=== PATIENT | male | born 1945 | race Caucasian/White ===

== ENCOUNTER 2019-01-21 20:03 | Inpatient (IN) ==
[~2019-01-21 20:03] MED LIST: HEPARIN (PORCINE) 1000 UNIT/ML 10 ML (CATH LAB USE ONLY) ONE; LIDOCAINE HCL 1% 20 ML VIAL ONE; MIDAZOLAM HCL 1 MG/ML 2ML VIAL ONE; NITROGLYCERIN/D5W 100MCG/ML 20ML SYR ONE; NiCARDipine HCL INJ 2.5 MG/ML 10 ML AMP ONE; fentaNYL citrate 100 MCG/2 ML VIAL ONE
[2019-01-21] MEDS ORDERED: HEPARIN SOD (PORCINE) 1000 UNIT/ML 10 ML VIAL ONE (20:18)
[2019-01-21] MEDS ORDERED: TICAGRELOR 90 MG TAB PO ONE (20:18)
--- NOTE | 2019-01-21 20:25 | XRay Report ---
XR chest 1V portable HISTORY: 73 years-old Male Chest Pain acute atypical chest pain COMPARISON: Chest radiographs 10/19/2012 TECHNIQUE: Semiupright AP view of the chest FINDINGS: A catheter or nonspecific with a overlies the right upper chest and left mid chest. The cardiac silho uette is enlarged. Lungs are hypoinflated without pneumothorax, pleural effusion, focal airspace cons olidation or overt pulmonary edema. Degenerative changes of the shoulders and spine. IMPRESSION: 1. Cardiomegaly without overt pulmonary edema. 2. Hypoinflation. The above report was generated using voice recognition software. It may contain grammatical, syntax o r spelling errors. Electronically signed by: Elías Whaley M.D. 01/21/2019 8:24 PM
[2019-01-21 20:33] LABS: Basophils # (auto) 0.05 K/uL (0-0.2); Basophils % (auto) 0.5 %; Eosinophils # (auto) 0.11 K/uL (0-0.5); Eosinophils % (auto) 1.2 %; Hematocrit (blood only) 40.8 % (42-52); Hemoglobin 13.9 g/dL (14.0-18.0); Immature Granulocytes # (auto) 0.05 K/uL (0.00-0.02); Immature Granulocytes % (auto) 0.5 %; Lymphocytes % (auto) 13.1 %; Mean Corpuscular Hgb Conc 34.1 g/dL (32-36); Mean Corpuscular Volume 87.6 fL (80-100); Mean Platelet Volume 9.1 fL (7.4-10.4); Monocytes # (auto) 0.49 K/uL (0.11-0.59); Monocytes % (auto) 5.4 %; Neutrophils # (auto) 7.23 K/uL (1.4-6.5); Neutrophils % (auto) 79.3 %; Platelet Count 186 K/uL (130-400); RDW Coefficient of Variation 13.9 % (11.5-14.5); RDW Standard Deviation 44.4 fL (36.4-46.3); Red Blood Count 4.66 M/uL (4.7-6.1); White Blood Count 9.13 K/uL (4.8-10.8)
[2019-01-21 20:44] LABS: Partial Thromboplastin Ratio 0.8; Partial Thromboplastin Time 21.5 Seconds (21.0-31.0); Prothrombin Time 10.6 Seconds (9.0-12.0)
[2019-01-21 20:51] LABS: Albumin Level 3.9 gm/dl (3.4-5.0); BUN Creatinine Ratio 18.1 (10-20); Calcium 8.3 mg/dl (8.5-10.1); Creatinine Clr Calc Pharmacy 65.4 ml/min; Est GFR (Non-African American) 54.4; Potassium 4.2 mmol/L (3.5-5.1)
--- NOTE | 2019-01-21 20:51 | Emergency Department Note ---
Entered by Kacy Sauceda acting as a scribe for Miguel A Soto DO History of Present Illness General Chief complaint: Heart Alert Source: patient and EMS Mode of arrival: EMS Limitations: no limitations History of Present Illness Provider complaint: chest pain Onset (ago): hour(s) 1 Location: chest Radiation: extremity (both arms) Pain Consistency: + other (episode) Maximum Pain Intensity: 10 Current Pain Intensity: 5 Quality: + other (pressure) Associated symptoms: + nausea/vomiting and + other (neck pain); no shortness of breath Treatments prior to arrival: aspirin (4) and other (3 NTG) The patient is a 73 year old male who presents to the Emergency Room via EMS following an episode of chest pain that began an hour ago. Per EMS, the patient' s pain radiates to both arms. The patient denies the pain radiating to his back. He describes the pain as a pressure and rates it a 5/10. The patient states that he has some neck pain and had an episode of emesis but denies any shortness of breath. The patient notes that he had just eaten a hoagie when the symptoms onset. The family reports that the patient was shoveling snow earlier today. Per EMS, the patient was given 4 aspirin and 3 nitroglycerins en route. Home Medications Home Medications Medication Instructions Recorded Confirmed Type LISINOPRIL (PRINIVIL) 10 mg PO QAM #0 tab 10/19/12 History SIMVASTATIN (ZOCOR) 40 mg PO QAM #0 tab 10/19/12 History OXYCODONE HCL (OXYCODONE HCL ER) 10 mg PO Q12 #20 12/05/12 Rx XRL10 10 mg PO QAM 14 Days #0 12/05/12 Rx Allergies Allergy/AdvReac Type Severity Reaction Status Date / Time No Known Allergies Allergy Unverified 10/19/12 09:07 Past Med/Surg History Medical History Obesity Hyperlipidemia Hypertension (Chronic) No significant past surgical history Family History Other Family history non-contributory Social History Current Living Situation: Spouse Other Information That Helps Us Care for You: No Feels Safe at Home: Yes Safety Concerns: Feels Safe At This Time Smoking Status: Current every day smoker Tobacco Type: smokeless tobacco Hx Substance Use: No Beliefs That Will Affect Care: None Communication Ability: Effective Review of Systems See HPI for pertinent positives & negatives. and A total of 10 systems reviewed and were otherwise negative Physical Exam Vital Signs Vital Signs - 24 hr 01/21/19 20:02 01/21/19 20:06 01/21/19 20:11 Temperature 36.8 C Temperature Source Oral Sepsis Recent Fever Within 48 Hours No Sepsis Action Taken by Nursing No Action Required Pulse Rate 89 89 Pulse Rate [Apical] Pulse Rate from SpO2 Sensor 90 Pulse Rhythm [Apical] Pulse Strength [Apical] Respiratory Rate 12 Respiratory Effort / Characteristics Non-Labored Spontaneous Respiratory Depth Normal Respiratory Pattern Regular Blood Pressure 189/102 H 196/107 H Blood Pressure [Left Arm] Blood Pressure Mean 131 136 Blood Pressure Mean [Left Arm] Blood Pressure Position Lying Blood Pressure Position [Left Arm] Pulse Oximetry 97 97 98 Oxygen Delivery Method Room Air Room Air Room Air 01/21/19 20:16 01/21/19 22:36 01/21/19 22:37 Temperature 36.9 C Temperature Source Oral Sepsis Recent Fever Within 48 Hours Sepsis Action Taken by Nursing Pulse Rate 96 H Pulse Rate [Apical] 87 83 Pulse Rate from SpO2 Sensor 97 H Pulse Rhythm [Apical] Regular Pulse Strength [Apical] Normal Respiratory Rate 18 18 Respiratory Effort / Characteristics Non-Labored Spontaneous Respiratory Depth Normal Respiratory Pattern Regular Blood Pressure Blood Pressure [Left Arm] 136/63 137/79 Blood Pressure Mean Blood Pressure Mean [Left Arm] 87 98 Blood Pressure Position Blood Pressure Position [Left Arm] Lying Pulse Oximetry 94 98 99 Oxygen Delivery Method Room Air Room Air 01/21/19 22:52 01/21/19 23:07 01/21/19 23:37 Temperature Temperature Source Sepsis Recent Fever Within 48 Hours Sepsis Action Taken by Nursing Pulse Rate Pulse Rate [Apical] 76 77 61 Pulse Rate from SpO2 Sensor Pulse Rhythm [Apical] Regular Regular Regular Pulse Strength [Apical] Normal Normal Respiratory Rate 16 20 20 Respiratory Effort / Characteristics Non-Labored Spontaneous Non-Labored Spontaneous Non-Labored Spontaneous Respiratory Depth Normal Normal Normal Respiratory Pattern Regular Regular Regular Blood Pressure Blood Pressure [Left Arm] 139/66 145/79 H 134/76 Blood Pressure Mean Blood Pressure Mean [Left Arm] 90 101 95 Blood Pressure Position Blood Pressure Position [Left Arm] Lying Lying Lying Pulse Oximetry 99 98 99 Oxygen Delivery Method Room Air Room Air Room Air 01/22/19 00:07 01/22/19 01:07 01/22/19 02:07 Temperature 36.6 C Temperature Source Oral Sepsis Recent Fever Within 48 Hours Sepsis Action Taken by Nursing Pulse Rate Pulse Rate [Apical] 61 67 60 Pulse Rate from SpO2 Sensor Pulse Rhythm [Apical] Regular Regular Regular Pulse Strength [Apical] Normal Normal Normal Respiratory Rate 20 20 20 Respiratory Effort / Characteristics Non-Labored Spontaneous Non-Labored Spontaneous Non-Labored Spontaneous Respiratory Depth Normal Normal Normal Respiratory Pattern Regular Regular Regular Blood Pressure Blood Pressure [Left Arm] 123/74 118/50 L 141/90 H Blood Pressure Mean Blood Pressure Mean [Left Arm] 90 72 107 Blood Pressure Position Blood Pressure Position [Left Arm] Lying Lying Lying Pulse Oximetry 95 93 98 Oxygen Delivery Method Room Air Room Air Room Air 01/22/19 03:07 01/22/19 04:07 01/22/19 06:04 Temperature 36.8 C Temperature Source Oral Sepsis Recent Fever Within 48 Hours Sepsis Action Taken by Nursing Pulse Rate Pulse Rate [Apical] 63 61 60 Pulse Rate from SpO2 Sensor Pulse Rhythm [Apical] Regular Regular Regular Pulse Strength [Apical] Normal Normal Respiratory Rate 14 20 20 Respiratory Effort / Characteristics Non-Labored Spontaneous Non-Labored Spontaneous Non-Labored Spontaneous Respiratory Depth Normal Normal Normal Respiratory Pattern Regular Regular Regular Blood Pressure Blood Pressure [Left Arm] 151/81 H 142/78 H 135/62 Blood Pressure Mean Blood Pressure Mean [Left Arm] 104 99 86 Blood Pressure Position Blood Pressure Position [Left Arm] Lying Lying Lying Pulse Oximetry 95 96 97 Oxygen Delivery Method Room Air Room Air Room Air 01/22/19 07:00 01/22/19 08:00 01/22/19 08:01 Temperature Temperature Source Sepsis Recent Fever Within 48 Hours Sepsis Action Taken by Nursing Pulse Rate 56 L 65 Pulse Rate [Apical] Pulse Rate from SpO2 Sensor 56 L 63 Pulse Rhythm [Apical] Pulse Strength [Apical] Respiratory Rate 18 15 Respiratory Effort / Characteristics Respiratory Depth Respiratory Pattern Blood Pressure 158/76 H 175/93 H Blood Pressure [Left Arm] Blood Pressure Mean 103 120 Blood Pressure Mean [Left Arm] Blood Pressure Position Blood Pressure Position [Left Arm] Pulse Oximetry 98 99 Oxygen Delivery Method Room Air Room Air 01/22/19 09:00 01/22/19 09:05 01/22/19 09:58 Temperature Temperature Source Sepsis Recent Fever Within 48 Hours Sepsis Action Taken by Nursing Pulse Rate 60 57 L 77 Pulse Rate [Apical] Pulse Rate from SpO2 Sensor 60 Pulse Rhythm [Apical] Pulse Strength [Apical] Respiratory Rate 18 17 Respiratory Effort / Characteristics Respiratory Depth Respiratory Pattern Blood Pressure 158/81 H 146/84 H Blood Pressure [Left Arm] Blood Pressure Mean 106 104 Blood Pressure Mean [Left Arm] Blood Pressure Position Blood Pressure Position [Left Arm] Pulse Oximetry 97 96 Oxygen Delivery Method Room Air 01/22/19 12:01 01/22/19 12:02 01/22/19 13:00 Temperature 37.2 C Temperature Source Sepsis Recent Fever Within 48 Hours Sepsis Action Taken by Nursing Pulse Rate 63 61 55 L Pulse Rate [Apical] Pulse Rate from SpO2 Sensor 62 60 55 L Pulse Rhythm [Apical] Pulse Strength [Apical] Respiratory Rate 20 19 20 Respiratory Effort / Characteristics Respiratory Depth Respiratory Pattern Blood Pressure 107/68 101/58 L Blood Pressure [Left Arm] Blood Pressure Mean 81 72 Blood Pressure Mean [Left Arm] Blood Pressure Position Blood Pressure Position [Left Arm] Pulse Oximetry 97 96 95 Oxygen Delivery Method Room Air 01/22/19 14:00 01/22/19 15:00 Temperature Temperature Source Sepsis Recent Fever Within 48 Hours Sepsis Action Taken by Nursing Pulse Rate 57 L 48 L Pulse Rate [Apical] Pulse Rate from SpO2 Sensor 56 L 49 L Pulse Rhythm [Apical] Pulse Strength [Apical] Respiratory Rate 17 14 Respiratory Effort / Characteristics Respiratory Depth Respiratory Pattern Blood Pressure 115/65 112/60 Blood Pressure [Left Arm] Blood Pressure Mean 81 77 Blood Pressure Mean [Left Arm] Blood Pressure Position Blood Pressure Position [Left Arm] Pulse Oximetry 98 95 Oxygen Delivery Method Room Air GENERAL: Patient is awake and alert. He is somewhat anxious appearing and appears to be uncomfortable. EYES: The conjunctivae are clear. The pupils are round and reactive. EARS, NOSE, MOUTH AND THROAT: The nose is without any evidence of any deformity. Mucous membranes are moist tongue is midline NECK: The neck is nontender and supple. RESPIRATORY: Normal respiratory effort is noted there is no evidence of wheezing rhonchi or rales CARDIOVASCULAR: Regular rate and rhythm noted there no murmurs rubs or gallops normal S1 normal S2 GASTROINTESTINAL: The abdomen is soft. Bowel sounds are present in all quadrants. Abdomen is nontender MUSCULOSKELETAL/EXTREMITIES: There is no evidence of gross deformity full range of motion is noted in the hips and shoulders SKIN: There is no obvious evidence of any rash. No significant pedal edema was noted. Pulses were symmetric in both wrists. NEUROLOGIC: Patient is awake alert and oriented x3 strength is symmetric patellar reflexes are 2+ bilaterally Course 2003: Past medical records reviewed. The patient was evaluated in room B1, and a complete history and physical examination were performed. 2049: The patient was taken to the cleaner laboratory equipment. Administered Medications Aspirin (Ecotrin Ectab) 81 mg PO QAM [facility] Stop: 02/21/19 08:59 Last Admin: 01/22/19 08:20 Dose: 81 mg Atorvastatin Calcium (Lipitor) 80 mg PO QAM [facility] Stop: 02/21/19 08:59 Last Admin: 01/22/19 08:19 Dose: 80 mg Lisinopril (Zestril) 10 mg PO QAM [facility] Stop: 02/21/19 08:59 Last Admin: 01/22/19 08:19 Dose: 10 mg Metoprolol Tartrate (Lopressor) 25 mg PO BID [facility] Stop: 02/21/19 08:59 Last Admin: 01/22/19 09:50 Dose: 25 mg Ticagrelor (Brilinta) 90 mg PO BID [facility] Stop: 02/21/19 08:59 Last Admin: 01/22/19 08:19 Dose: 90 mg Discontinued Medications Atropine Sulfate (Atropine Sulfate) Confirm Administered Dose 1 mg IV .STK-MED ONE Stop: 01/21/19 22:04 Last Admin: 01/21/19 23:10 Dose: Not Given Fentanyl Citrate (Fentanyl Citrate) Confirm Administered Dose 100 mcg .ROUTE .STK-MED ONE Stop: 01/21/19 19:57 Last Admin: 01/21/19 23:06 Dose: Not Given Heparin Sodium (Porcine) (Heparin Iv Bolus ([facility] Use Only)) Confirm Administered Dose 10,000 units .ROUTE .STK-MED ONE Stop: 01/21/19 19:56 Last Admin: 01/21/19 23:05 Dose: Not Given Heparin Sodium (Porcine) (Heparin Iv Bolus) Confirm Administered Dose 10,000 units .ROUTE .STK-MED ONE Stop: 01/21/19 20:19 Last Admin: 01/21/19 20:21 Dose: 5,000 units Heparin Sodium/Sodium Chloride (Heparin Sod/Nss 2 Units/Ml) Confirm Administered Dose 3,000 units IV .STK-MED ONE Stop: 01/21/19 19:56 Last Admin: 01/21/19 23:05 Dose: Not Given Sodium Chloride (Nss 1000ml) 1,000 mls @ 100 mls/hr IV .Q10H TRI Stop: 01/22/19 05:59 Last Infusion: 01/22/19 06:05 Dose: 0 mls/hr Admin: 01/21/19 22:30 Dose: 100 mls/hr Lidocaine HCl (Xylocaine 1% (Local)) Confirm Administered Dose 20 ml .ROUTE .STK -MED ONE Stop: 01/21/19 20:04 Last Admin: 01/21/19 23:09 Dose: Not Given Midazolam HCl (Versed) Confirm Administered Dose 2 mg .ROUTE .STK-MED ONE Stop: 01/21/19 19:57 Last Admin: 01/21/19 23:06 Dose: Not Given Nicardipine HCl (Cardene) Confirm Administered Dose 25 mg .ROUTE .STK-MED ONE Stop: 01/21/19 19:56 Last Admin: 01/21/19 23:04 Dose: Not Given Nitroglycerin/Dextrose (Nitroglycerin/D5w 100 Mcg/Ml 20ml Syringe) Confirm Administered Dose 2,000 mcg .ROUTE .STK-MED ONE Stop: 01/21/19 19:57 Last Admin: 01/21/19 23:06 Dose: Not Given Ticagrelor (Brilinta) Confirm Administered Dose 180 mg PO .STK-MED ONE Stop: 01/21/19 20:19 Last Admin: 01/21/19 20:21 Dose: 180 mg Medical Decision Making Differential Diagnosis Differential diagnoses includes but is not limited to: GERD, esophageal spasm, cholecystitis, acute coronary syndrome, myocardial infarction, pericarditis, pulmonary embolus, aortic dissection, pneumonia, pneumothorax, and musculoskeletal, shingles. Medical Records Attestation: I reviewed the patient's medical records. Home Medications Current Medication List: was personally reviewed by me Laboratory Data Attestation: I reviewed the patient's lab results. Result diagrams: 01/22/19 04:03 01/22/19 10:25 Lab Results 01/21/19 01/21/19 01/21/19 Range/Units 20:14 20:14 20:14 WBC 9.13 (4.8-10.8) K/uL RBC 4.66 L (4.7-6.1) M/uL Hgb 13.9 L (14.0-18.0) g/dL Hct 40.8 L (42-52) % MCV 87.6 (80-100) fL MCH 29.8 (25-34) pg MCHC 34.1 (32-36) g/dL RDW Std Deviation 44.4 (36.4-46.3) fL RDW Coeff of Shine 13.9 (11.5-14.5) % Plt Count 186 (130-400) K/uL MPV 9.1 (7.4-10.4) fL Immature Gran % (Auto) 0.5 % Neut % (Auto) 79.3 % Lymph % (Auto) 13.1 % [place] % (Auto) 5.4 % Eos % (Auto) 1.2 % Baso % (Auto) 0.5 % Immature Gran # (Auto) 0.05 H (0.00-0.02) K/uL Neut # (Auto) 7.23 H (1.4-6.5) K/uL Lymph # (Auto) 1.20 (1.2-3.4) K/uL [place] # (Auto) 0.49 (0.11-0.59) K/uL Eos # (Auto) 0.11 (0-0.5) K/uL Baso # (Auto) 0.05 (0-0.2) K/uL PT 10.6 (9.0-12.0) Seconds INR 1.0 (0.9-1.1) APTT 21.5 (21.0-31.0) Seconds PTT Ratio 0.8 Activ Coag Time Kaolin (94-140) SECONDS Sodium 138 (136-145) mmol/L Potassium 4.2 (3.5-5.1) mmol/L Chloride 106 (98-107) mmol/L Carbon Dioxide 27 (21-32) mmol/L Anion Gap 6.0 (3-11) BUN 24 H (7-18) mg/dl Creatinine 1.31 (0.6-1.4) mg/dl Est Cr Clr Drug Dosing 65.4 ml/min Est GFR ( Amer) 63.0 Est GFR (Non-Af Amer) 54.4 BUN/Creatinine Ratio 18.1 (10-20) Glucose 167 H (70-99) mg/dl Estimat Average Glucose mg/dl Hemoglobin A1c (4.5-5.6) % Calcium 8.3 L (8.5-10.1) mg/dl Phosphorus (2.5-4.9) mg/dl Magnesium (1.8-2.4) mg/dl Total Bilirubin 0.3 (0.2-1) mg/dl AST 27 (15-37) U/L ALT 35 (12-78) U/L Alkaline Phosphatase 55 (45-117) U/L POC Troponin I (0-0.045) ng/ml Troponin I 0.030 (0-0.045) ng/ml Total Protein 7.3 (6.4-8.2) gm/dl Albumin 3.9 (3.4-5.0) gm/dl Globulin 3.4 (2.5-4.0) gm/dl Albumin/Globulin Ratio 1.1 (0.9-2) Triglycerides (0-150) mg/dl Cholesterol (0-200) mg/dl LDL Cholesterol, Calc mg/dl VLDL Cholesterol, Calc mg/dl HDL Cholesterol mg/dl Cholesterol/HDL Ratio Lipase 134 (73-393) U/L Nasal Screen MRSA (PCR) (Negative) Hepatitis C Ab Screen (Neg) 01/21/19 01/21/19 01/22/19 Range/Units 20:14 21:17 04:03 WBC (4.8-10.8) K/uL RBC (4.7-6.1) M/uL Hgb (14.0-18.0) g/dL Hct (42-52) % MCV (80-100) fL MCH (25-34) pg MCHC (32-36) g/dL RDW Std Deviation (36.4-46.3) fL RDW Coeff of Shine (11.5-14.5) % Plt Count (130-400) K/uL MPV (7.4-10.4) fL Immature Gran % (Auto) % Neut % (Auto) % Lymph % (Auto) % [place] % (Auto) % Eos % (Auto) % Baso % (Auto) % Immature Gran # (Auto) (0.00-0.02) K/uL Neut # (Auto) (1.4-6.5) K/uL Lymph # (Auto) (1.2-3.4) K/uL [place] # (Auto) (0.11-0.59) K/uL Eos # (Auto) (0-0.5) K/uL Baso # (Auto) (0-0.2) K/uL PT (9.0-12.0) Seconds INR (0.9-1.1) APTT (21.0-31.0) Seconds PTT Ratio Activ Coag Time Kaolin 175 H (94-140) SECONDS Sodium (136-145) mmol/L Potassium (3.5-5.1) mmol/L Chloride (98-107) mmol/L Carbon Dioxide (21-32) mmol/L Anion Gap (3-11) BUN (7-18) mg/dl Creatinine (0.6-1.4) mg/dl Est Cr Clr Drug Dosing ml/min Est GFR ( Amer) Est GFR (Non-Af Amer) BUN/Creatinine Ratio (10-20) Glucose (70-99) mg/dl Estimat Average Glucose mg/dl Hemoglobin A1c (4.5-5.6) % Calcium (8.5-10.1) mg/dl Phosphorus (2.5-4.9) mg/dl Magnesium (1.8-2.4) mg/dl Total Bilirubin (0.2-1) mg/dl AST (15-37) U/L ALT (12-78) U/L Alkaline Phosphatase (45-117) U/L POC Troponin I < 0.03 (0-0.045) ng/ml Troponin I (0-0.045) ng/ml Total Protein (6.4-8.2) gm/dl Albumin (3.4-5.0) gm/dl Globulin (2.5-4.0) gm/dl Albumin/Globulin Ratio (0.9-2) Triglycerides (0-150) mg/dl Cholesterol (0-200) mg/dl LDL Cholesterol, Calc mg/dl VLDL Cholesterol, Calc mg/dl HDL Cholesterol mg/dl Cholesterol/HDL Ratio Lipase (73-393) U/L Nasal Screen MRSA (PCR) (Negative) Hepatitis C Ab Screen Neg (Neg) 01/22/19 01/22/19 01/22/19 Range/Units 04:03 04:03 04:03 WBC 8.58 (4.8-10.8) K/uL RBC 4.38 L (4.7-6.1) M/uL Hgb 12.9 L (14.0-18.0) g/dL Hct 38.2 L (42-52) % MCV 87.2 (80-100) fL MCH 29.5 (25-34) pg MCHC 33.8 (32-36) g/dL RDW Std Deviation 44.3 (36.4-46.3) fL RDW Coeff of Shine 13.8 (11.5-14.5) % Plt Count 197 (130-400) K/uL MPV 9.0 (7.4-10.4) fL Immature Gran % (Auto) 0.6 % Neut % (Auto) 69.6 % Lymph % (Auto) 17.9 % [place] % (Auto) 10.0 % Eos % (Auto) 1.3 % Baso % (Auto) 0.6 % Immature Gran # (Auto) 0.05 H (0.00-0.02) K/uL Neut # (Auto) 5.97 (1.4-6.5) K/uL Lymph # (Auto) 1.54 (1.2-3.4) K/uL [place] # (Auto) 0.86 H (0.11-0.59) K/uL Eos # (Auto) 0.11 (0-0.5) K/uL Baso # (Auto) 0.05 (0-0.2) K/uL PT (9.0-12.0) Seconds INR (0.9-1.1) APTT (21.0-31.0) Seconds PTT Ratio Activ Coag Time Kaolin (94-140) SECONDS Sodium (136-145) mmol/L Potassium (3.5-5.1) mmol/L Chloride (98-107) mmol/L Carbon Dioxide (21-32) mmol/L Anion Gap (3-11) BUN (7-18) mg/dl Creatinine (0.6-1.4) mg/dl Est Cr Clr Drug Dosing ml/min Est GFR ( Amer) Est GFR (Non-Af Amer) BUN/Creatinine Ratio (10-20) Glucose (70-99) mg/dl Estimat Average Glucose 120 mg/dl Hemoglobin A1c 5.8 H (4.5-5.6) % Calcium (8.5-10.1) mg/dl Phosphorus (2.5-4.9) mg/dl Magnesium (1.8-2.4) mg/dl Total Bilirubin (0.2-1) mg/dl AST (15-37) U/L ALT (12-78) U/L Alkaline Phosphatase (45-117) U/L POC Troponin I (0-0.045) ng/ml Troponin I 29.900 H* (0-0.045) ng/ml Total Protein (6.4-8.2) gm/dl Albumin (3.4-5.0) gm/dl Globulin (2.5-4.0) gm/dl Albumin/Globulin Ratio (0.9-2) Triglycerides 218 H (0-150) mg/dl Cholesterol 228 H (0-200) mg/dl LDL Cholesterol, Calc 146 mg/dl VLDL Cholesterol, Calc 44 mg/dl HDL Cholesterol 38 mg/dl Cholesterol/HDL Ratio 6 Lipase (73-393) U/L Nasal Screen MRSA (PCR) (Negative) Hepatitis C Ab Screen (Neg) 01/22/19 01/22/19 Range/Units 10:25 Unknown WBC (4.8-10.8) K/uL RBC (4.7-6.1) M/uL Hgb (14.0-18.0) g/dL Hct (42-52) % MCV (80-100) fL MCH (25-34) pg MCHC (32-36) g/dL RDW Std Deviation (36.4-46.3) fL RDW Coeff of Shine (11.5-14.5) % Plt Count (130-400) K/uL MPV (7.4-10.4) fL Immature Gran % (Auto) % Neut % (Auto) % Lymph % (Auto) % [place] % (Auto) % Eos % (Auto) % Baso % (Auto) % Immature Gran # (Auto) (0.00-0.02) K/uL Neut # (Auto) (1.4-6.5) K/uL Lymph # (Auto) (1.2-3.4) K/uL [place] # (Auto) (0.11-0.59) K/uL Eos # (Auto) (0-0.5) K/uL Baso # (Auto) (0-0.2) K/uL PT (9.0-12.0) Seconds INR (0.9-1.1) APTT (21.0-31.0) Seconds PTT Ratio Activ Coag Time Kaolin (94-140) SECONDS Sodium 139 (136-145) mmol/L Potassium 3.9 (3.5-5.1) mmol/L Chloride 108 H (98-107) mmol/L Carbon Dioxide 27 (21-32) mmol/L Anion Gap 4.0 (3-11) BUN 17 (7-18) mg/dl Creatinine 1.07 (0.6-1.4) mg/dl Est Cr Clr Drug Dosing 79.1 ml/min Est GFR ( Amer) 80.5 Est GFR (Non-Af Amer) 69.5 BUN/Creatinine Ratio 16.0 (10-20) Glucose 89 (70-99) mg/dl Estimat Average Glucose mg/dl Hemoglobin A1c (4.5-5.6) % Calcium 8.6 (8.5-10.1) mg/dl Phosphorus 3.0 (2.5-4.9) mg/dl Magnesium 2.2 (1.8-2.4) mg/dl Total Bilirubin (0.2-1) mg/dl AST (15-37) U/L ALT (12-78) U/L Alkaline Phosphatase (45-117) U/L POC Troponin I (0-0.045) ng/ml Troponin I 30.900 H* (0-0.045) ng/ml Total Protein (6.4-8.2) gm/dl Albumin (3.4-5.0) gm/dl Globulin (2.5-4.0) gm/dl Albumin/Globulin Ratio (0.9-2) Triglycerides (0-150) mg/dl Cholesterol (0-200) mg/dl LDL Cholesterol, Calc mg/dl VLDL Cholesterol, Calc mg/dl HDL Cholesterol mg/dl Cholesterol/HDL Ratio Lipase (73-393) U/L Nasal Screen MRSA (PCR) Negative (Negative) Hepatitis C Ab Screen (Neg) Imaging Data Radiologist's Impression: Radiology results as stated below per my review and the radiologist's interpretation: XR chest 1V portable HISTORY: 73 years-old Male Chest Pain acute atypical chest pain COMPARISON: Chest radiographs 10/19/2012 TECHNIQUE: Semiupright AP view of the chest FINDINGS: A catheter or nonspecific with a overlies the right upper chest and left mid chest. The cardiac silhouette is enlarged. Lungs are hypoinflated without pneumothorax, pleural effusion, focal airspace consolidation or overt pulmonary edema. Degenerative changes of the shoulders and spine. IMPRESSION: 1. Cardiomegaly without overt pulmonary edema. 2. Hypoinflation. The above report was generated using voice recognition software. It may contain grammatical, syntax or spelling errors. Electronically signed by: Elías Whaley M.D. 01/21/2019 8:24 PM ECG Data Attestation: I personally reviewed and interpreted this ECG as follows: Indication: chest pain Rate (beats per minute): 73 Rhythm: normal sinus Findings: + other (reciprocal changes in high lateral consistent inferior posterior wall [place]), + ST depression (anterior) and + ST elevation (inferior); no ectopy Comparison ECG Date: from (19-OCT-2012) Change: the following changes noted (changes new) Additional Comments: REPEAT EKG: normal sinus rhythm, 86 bpm, no ectopy, continued ST abnormalities consistent with inferior posterior [place] Blood Pressure Blood Pressure Findings: Normal blood pressure Blood Pressure Disposition: further management by hospitalist YOLANDA Liu The patient is a 73-year-old male who presented to the emergency department by ambulance as a heart alert. The patient had an EKG done by prehospital personnel that appear to be consistent with an inferior posterior wall [place]. The patient was treated with aspirin and nitroglycerin prior to arrival with some improvement of his symptoms. The patient was made a heart alert with 30 minutes prior to arrival. The patient arrived to the emergency department and he was evaluated by myself. I discussed the patient's condition with the admeasurer who arrived at the bedside. I discussed the patient 's condition with him. He was agreeable to interventional evaluation. He was taken to the [facility]. The patient was given Brilinta as well as IV heparin in the emergency department. Impression & Plan ST elevation myocardial infarction (STEMI) of inferior wall Discharge Plan Visit Data *Final* Discharge Date/Time: 01/21/19 20:21 Chief Complaint: Heart Alert ED Provider: Miguel A Soto Discharge Problem: ST elevation myocardial infarction (STEMI) of inferior wall Patient Disposition: Admitted As Inpatient Discharge Instructions Interventions: ED Discharge Assessment Last Done: 01/21/19 20:21 The scribe's documentation has been prepared under my direction and personally reviewed by me in its entirety. I confirm that the note above accurately reflects all work, treatment, procedures, and medical decision making performed by me.
[2019-01-21 20:56] LABS: Albumin Globulin Ratio 1.1 (0.9-2); Bilirubin,Total 0.3 mg/dl (0.2-1); Globulin 3.4 gm/dl (2.5-4.0); Total Protein 7.3 gm/dl (6.4-8.2); Troponin I 0.03 ng/ml (0-0.045)
[2019-01-21] MEDS ORDERED: ATROPINE SULFATE 0.1 MG/ML 10ML SYR IV ONE (22:03)
--- NOTE | 2019-01-21 22:17 | Pre Anesthesia Assessment ---
Date of Service January 21, 2019 Pre Sedation Assessment Vital Signs Temp Pulse Resp BP Pulse Ox 01/21/19 20:16 96 H 94 01/21/19 20:11 89 196/107 H 98 01/21/19 20:06 97 01/21/19 20:02 36.8 C 89 12 189/102 H 97 Cardiovascular RRR, no murmur, no edema Respiratory normal respiratory effort, lungs clear to auscultation Pre-Sedation Airway Assessment Smoking Status: Never smoker Hx Sleep Apnea: No Hx Difficult Intubation: No Short, Thick Neck: No Thyromental Distance: > or= 3.5 Finger Breadths Oral Cavity: + WNL Mallampati Class: III Procedure Planning Contraindications for Sedation: none Current Medications Reviewed: Yes Notes The planned sedation has been discussed with the patient. Informed Consent was obtained. I have identified the patient, determined the appropriateness of sedation and have assessed the patient immediately prior to the procedure. All medicine(s) and interventions are by my order.
--- NOTE | 2019-01-21 22:17 | Post Anesthesia Assessment ---
Date of Service January 21, 2019 Post Sedation Assessment Vital Signs Temp Pulse Resp BP Pulse Ox 01/21/19 20:16 96 H 94 01/21/19 20:11 89 196/107 H 98 01/21/19 20:06 97 01/21/19 20:02 36.8 C 89 12 189/102 H 97 Recovery Score Activity: Moves 4 extremities Respiration: Deep Breath/Cough Circulation: +/-20% PreAnes Value Consciousness: Fully Awake Oxygen Saturation: O2 needed for >90% Discharge Sedation Level of Care: Fast Track Phase II Post Sedation Plan On clinical assessment, the patient appears to have tolerated the sedation without complications. Patient is recovering as anticipated. Patient will continue to be monitored by nursing and may be discharged when sedation discharge criteria are met per below protocol. Upon Completions of procedure and additional 15 minutes continue every 5 minute vital signs and the P.A.R. score; then discharge to a Phase I or Fast Track to Phase II per the following guidelines: * Discharge Patient to appropriate Phase II area if PAR is 8 or greater or return to pre- procedure baseline. The post - procedure orders will be as directed. * If PAR score is less than 8 or not return to pre-procedure baseline then patient will follow Phase I monitoring till PAR is reached for Phase II. The Phase I may be done in procedure room or may call to secure a Phase I area. * If naloxone or flumazenil are used for reversal, hold in Phase I for continued monitoring from when last reversal dose was given for a minimum of 60 minutes or longer pending the nurse and/or physician discretion of patient condition before discharge to Phase II. Please call the Sedation Physician to re-evaluate and complete post-note for discharge to Phase II area. Do NOT discharge from procedure sedation or Phase 1 until post- sedation evaluation note is complete by procedure /sedation MD Sedation Discharge Instructions to be given to the patient at discharge to home.
[2019-01-21] MEDS ORDERED: ONDANSETRON INJ 2 MG/ML 2 ML VIAL IV PRN (22:22)
[2019-01-21] MEDS ORDERED: ACETAMINOPHEN 325 MG TAB PO PRN (22:22)
[2019-01-21] MEDS ORDERED: SODIUM CHLORIDE 0.9% 1000ML 1,000 ML IV SCH (22:30)
--- NOTE | 2019-01-21 22:46 | Cardiac Catheterization ---
Cardiac Cath Procedure Full Procedure Date January 21, 2019 Pre-Procedure Diagnosis Pre-Procedure Diagnosis: STEMI AUC Score AUC Score: 9 Post-Procedure Diagnosis Post-Procedure Diagnosis: Severe CAD, Successful PCI and Normal Intracardiac Pressures Procedure(s) Performed Procedure(s) Performed: Coronary Angiography, Left Heart Cath and Drug Eluting Stent Insurance Examiner Rodrigo Reid MD Tsa Screener(s) William Estimated Blood Loss Estimated Blood Loss: 15 Medication(s) Medication(s): Fentanyl, Heparin, Lidocaine 1%, Nicardipine, Nitroglycerin and Versed Medication(s): ticagrelor Summary of Findings Indication: STEMI/Heart Alert Access: 6 Marshallese right radial artery Catheters: Ikari 3.5 guide, JR4 guide; Rufus, JL 3.5 Findings: LM -large caliber vessel, luminal irregularities LAD -moderate caliber, 20% ostial, mildly calcified 20-30% proximal at takeoff of bifurcating first diagonal, diffuse 60% mid segment disease, diffuse distal disease, small caliber vessel as wraps around the apex with up to 70% stenosis. 60% proximal stenosis and an inferior branch of bifurcating first diagonal Circumflex -moderate caliber vessel, 30% proximal disease, distal luminal irregularities into left PLB. 40% ostial, 70% mid disease in small-moderate caliber OM 2, RCA -dominant, 80-90% proximal, acute 100% mid segment occlusion, diffuse mid to distal calcified 50-60% disease after flow reestablished, mild diffuse disease in right PDA, PLB's LVEDP -17 -- PCI -- Antithrombotic therapy: Heparin, ticagrelor Procedure: RCA cannulated with Ikari 3.5 guide Dude Ranch Manager 50 wire passed across lesion into distal vessel Mid, distal lesions predilated with 2.0 and 2.5 compliant balloon Stents delivered with the aid of a guide liner. Dilated distal lesion stented with 3.0 x 34 extending back in the mid segment Second RUPERT 3.0 x 38 overlapped with initial stent in mid segment extending back to proximal segment Some difficulty delivering third stent into second ostium and had to change guides/wires (JR4, BMW) Third RUPERT 3.0 x 12 mm Suraj overlapped with a second stent extending into proximal segment Stents post-dilated with 3.5 noncompliant balloon Post procedure JENIFER 3 flow, stent well expanded with minimal residual stenosis and no apparent cardiac complications. Arterial Closure: TR band Summary: 1. Inferior STEMI/Occluded mid RCA, 80-90% proximal RCA, diffuse mid to distal 60% RCA disease 2. Moderate to severe multi--vessel non-culprit coronary artery disease -Diffuse 60% disease and small mid LAD, diffuse apical LAD disease 70% disease in small OM 2 3. Borderline intracardiac filling pressure 4. Successful PCI of RCA occlusion and diffuse disease with 3 overlapping drug- eluting stents (3.0 x 12, 3.0 x 38, 3.0 x 34 Suraj; postdilated with 3.5 NC) Recommendations: Admit to ICU for continued monitoring Loaded with ticagrelor 180 mg in collaborative teacher Continue dual-antiplatelet therapy for at least 1 year. Trend troponins until peak, Check Echo Uptitrate beta-edgar/KRISTAN as BP allows High-dose statin Consult cardiac Rehab Hemodynamics Rest Ao:: 168/79/121 Final Ao: 142/73/104 LV: 166/17 Recommendations Recommendations: PCI without planned CABG Specimens Specimens: None Radiation Exposure (mGy) 7596 Contrast (mls) 180 Fluids (cc crystalloids) Fluids (cc crystalloids): 400 Drains Drains: None Anesthesia Moderate Procedural Complication(s) None Disposition ICU ACC Data: Flight Engineer Performance Qualified Cardiac Status Clinical evaluation leading to the procedure CAD Presenation: STEMI Anginal Classification: CCS IV Heart Failure: No Cardiogenic Shock within 24 Hours: No Cardiac Arrest within 24 Hours: No Imaging Studies Past 6 Months: No Stress Studies Past 6 Months: No Diagnostic Physicians Name: Rodrigo Reid MD Status: Emergency Closure Device Percutaneous Entry Location: Radial Closure Device: Radial Band Recommendations: PCI without planned CABG PCI Indication: Immediate PCI for STEMI First Noted: First EKG Lesion Segment Name: Mid RCA Culprit Artery: Yes Stenosis Prior to Rx (%): 100 Chronic Total Occlusion: No IVUS: No FFR: No Pre-Procedure JENIFER Flow: 0 Previously Treated Lesion: No Lesion Complexity: High/C Lesion Length (mm): 50+ Thrombus Present: Yes Bifurcation Lesion: No Guidewire Across Lesion: Stenosis Post-Procedure (%): 0 Post-Procedure JENIFER Flow : 3 Devices(s) Deployed: Yes Yes Intraprocedure Events Significant Disection: No Perforation: No
--- NOTE | 2019-01-21 22:51 | Cardiology Consultation ---
Date of Consultation January 21, 2019 Assessment & Plan (1) ST elevation myocardial infarction (STEMI) of inferior wall: 2. Hypertension 3. Dyslipidemia Patient here with 2+ hours of persistent substernal chest pain and inferior ST elevations on presenting EKG consistent with acute TN. Plan to proceed with emergent cardiac catheterization. Discussed risks, benefits, alternatives of procedure with patient and he is willing to proceed. Plan to perform via right radial artery. Further conditions pending findings of catheterization. Loaded with ticagrelor in the ED. History of Present Illness Reason for Consultation: NSTEMI/heart alert Requesting Physician: Dr. Soto Attending Physician: Rodrigo Reid MD History of Present Illness 73-year-old man with a history of hypertension, dyslipidemia who presented to [facility] ED with acute onset chest pain found to have inferior ST elevations on presenting EKG. Patient endorsed stuttering chest pain beginning this morning while shoveling snow. Was largely chest pain-free throughout the remainder of the day until approximately 5:30 PM tonight when while eating developed substernal persistent chest pain which initially attributed to reflux/gas. EMS was contacted after approximately 2 hours of chest pain. EKG in route showed inferior ST elevations and a heart alert was activated from the field. On arrival patient hypotensive, EKG again with inferior ST elevations having ongoing chest pain. He was loaded with aspirin, ticagrelor, heparin. Past medical history: No prior cardiac history Hypertension, dyslipidemia Osteoporosis post joint surgery Family history: Mother had cardiac issues, question pacemaker Social history: Uses chewing tobacco. Denies smoking. Denies heavy alcohol or illicit drugs. Allergies Allergy/AdvReac Type Severity Reaction Status Date / Time No Known Allergies Allergy Unverified 10/19/12 09:07 Home Medications Home Medications Medication Instructions Recorded Confirmed Type LISINOPRIL (PRINIVIL) 10 mg PO QAM #0 tab 10/19/12 History SIMVASTATIN (ZOCOR) 40 mg PO QAM #0 tab 10/19/12 History OXYCODONE HCL (OXYCODONE HCL ER) 10 mg PO Q12 #20 12/05/12 Rx XRL10 10 mg PO QAM 14 Days #0 12/05/12 Rx Patient History Social History Feels Safe at Home: Yes Smoking Status: Never smoker Review of Systems Not obtained the setting of emergent situation Physical Exam 2 Vital Signs (Past 24 Hours): Last Vital Signs Temp 36.8 C 01/21/19 20:02 Pulse 96 H 01/21/19 20:16 Resp 12 01/21/19 20:02 BP 196/107 H 01/21/19 20:11 Pulse Ox 94 01/21/19 20:16 Physical Exam: General: Uncomfortable Eyes: Sclerae anicteric, extraocular movements intact HENT: Oropharynx clear mucous membranes moist Neck: Normal carotid upstrokes, no bruits. No JVD. Lungs: Clear to auscultation bilaterally, no rhonchi or wheezes Cardiac: Regular rate and rhythm, no murmurs, rubs or gallops. Vascular: 2+ radial, DP and PT pulses. No varicosities. Abdomen: Soft, nontender, nondistended, positive bowel sounds. Extremities: Well perfused, no peripheral edema Skin: No rashes or lesions. Neuro: Nonfocal Psych: Alert orient x3, normal affect and mood
--- NOTE | 2019-01-21 23:46 | History & Physical Report ---
Date of Service January 21, 2019 Assessment & Plan (1) ST elevation myocardial infarction (STEMI) of inferior wall: STEMI: s/p RUPERT x 3 --ICU care, management per cardio note: --Loaded with ticagrelor 180 mg in laborer wharf --Dual anti-platelet therapy --Trend troponins until peak, Check Echo --Uptitrate beta-edgar/KRISTAN as BP allows --High-dose statin --Echo in AM --Check lipid panel and HbA1c Code: Full Dispo: ICU for further monitoring (2) Hypertension: (3) Hyperlipidemia: History of Present Illness Chief Complaint: chest pain, STEMI Primary Care Provider: NO PCP Patient is a pleasant 73yo M who was brought in by EMS for NSTEMI. Patient had been shoveling snow earlier today and noted intermittent CP while doing so. He felt fine afterwards, but notes at about 5:30 pm, he had acute, sudden onset central chest pain. He denies any radiation to his neck/jaw/L arm (however he does note that he has chronic neck/L shoulder pain). 911 was called and he was noted to have STEMI in inferior leads. He denies any significant PMH, however he takes lisinopril and zocor at home, indicating likely HTN and HLD. He is a never smoker, however does chew tobacco. He denies any family history of heart attacks, but notes his mother had some heart issues. Patient was brought in as a heart alert and underwent successful PERSONAL BANKING ASSISTANT with placement of 3x RUPERT in RCA. Allergies Allergy/AdvReac Type Severity Reaction Status Date / Time No Known Allergies Allergy Unverified 10/19/12 09:07 Home Medications Home Medications Medication Instructions Recorded Confirmed Type LISINOPRIL (PRINIVIL) 10 mg PO QAM #0 tab 10/19/12 History SIMVASTATIN (ZOCOR) 40 mg PO QAM #0 tab 10/19/12 History OXYCODONE HCL (OXYCODONE HCL ER) 10 mg PO Q12 #20 12/05/12 Rx XRL10 10 mg PO QAM 14 Days #0 12/05/12 Rx Past Med/Surg History Medical History Obesity Hyperlipidemia Hypertension (Chronic) No significant past surgical history Family History Other Family history non-contributory Social History Current Living Situation: Spouse Other Information That Helps Us Care for You: No Feels Safe at Home: Yes Safety Concerns: Feels Safe At This Time Smoking Status: Current every day smoker Tobacco Type: smokeless tobacco Hx Substance Use: No Beliefs That Will Affect Care: None Communication Ability: Effective Review of Systems All systems reviewed & are unremarkable except as noted in HPI & below Constitutional: no fever and no body aches Respiratory: no cough, no change in sputum, no dyspnea and no dyspnea on exertion Cardiovascular: no chest pain, no chest pain at rest, no radiating jaw, neck or arm pain, no dyspnea at rest and no syncope Gastrointestinal: no abdominal pain Musculoskeletal: + problem reported (some discomfort at site of cath insertion on R wrist) Physical Exam 2 Vital Signs (Past 24 Hours): Last Vital Signs Temp 36.9 C 01/21/19 22:36 Pulse 77 01/21/19 23:07 Resp 20 01/21/19 23:07 BP 145/79 H 01/21/19 23:07 Pulse Ox 98 01/21/19 23:07 Constitutional: WD/WN, vitals as above Eyes: PERRL, conjunctivae normal, anicteric sclerae Neck: normal visual inspection Respiratory: normal respiratory effort, lungs clear to auscultation Cardiovascular: RRR, no murmur, no edema Gastrointestinal (Abdomen): normal bowel sounds, soft, nontender, no hepatosplenomegaly Musculoskeletal: no cyanosis or clubbing, extremities motor strength 5/5 Skin: no rashes, warm and dry Neurologic: PERRL, EOMI, accommodation nl, no face palsy, no dysarthria Psychiatric: A+Ox3, euthymic affect Results & Data Laboratory Results 01/21/19 01/21/19 01/21/19 Range/Units 20:14 20:14 20:14 WBC (4.8-10.8) K/uL RBC (4.7-6.1) M/uL Hgb (14.0-18.0) g/dL Hct (42-52) % MCV (80-100) fL MCH (25-34) pg MCHC (32-36) g/dL RDW Std Deviation (36.4-46.3) fL RDW Coeff of Shine (11.5-14.5) % Plt Count (130-400) K/uL MPV (7.4-10.4) fL Immature Gran % (Auto) % Neut % (Auto) % Lymph % (Auto) % Walton % (Auto) % Eos % (Auto) % Baso % (Auto) % Immature Gran # (Auto) (0.00-0.02) K/uL Neut # (Auto) (1.4-6.5) K/uL Lymph # (Auto) (1.2-3.4) K/uL Walton # (Auto) (0.11-0.59) K/uL Eos # (Auto) (0-0.5) K/uL Baso # (Auto) (0-0.2) K/uL PT 10.6 (9.0-12.0) Seconds INR 1.0 (0.9-1.1) APTT 21.5 (21.0-31.0) Seconds PTT Ratio 0.8 Sodium 138 (136-145) mmol/L Potassium 4.2 (3.5-5.1) mmol/L Chloride 106 (98-107) mmol/L Carbon Dioxide 27 (21-32) mmol/L Anion Gap 6.0 (3-11) BUN 24 H (7-18) mg/dl Creatinine 1.31 (0.6-1.4) mg/dl Est Cr Clr Drug Dosing 65.4 ml/min Est GFR ( Amer) 63.0 Est GFR (Non-Af Amer) 54.4 BUN/Creatinine Ratio 18.1 (10-20) Glucose 167 H (70-99) mg/dl Calcium 8.3 L (8.5-10.1) mg/dl Total Bilirubin 0.3 (0.2-1) mg/dl AST 27 (15-37) U/L ALT 35 (12-78) U/L Alkaline Phosphatase 55 (45-117) U/L POC Troponin I < 0.03 (0-0.045) ng/ml Troponin I 0.030 (0-0.045) ng/ml Total Protein 7.3 (6.4-8.2) gm/dl Albumin 3.9 (3.4-5.0) gm/dl Globulin 3.4 (2.5-4.0) gm/dl Albumin/Globulin Ratio 1.1 (0.9-2) Lipase 134 (73-393) U/L 01/21/19 Range/Units 20:14 WBC 9.13 (4.8-10.8) K/uL RBC 4.66 L (4.7-6.1) M/uL Hgb 13.9 L (14.0-18.0) g/dL Hct 40.8 L (42-52) % MCV 87.6 (80-100) fL MCH 29.8 (25-34) pg MCHC 34.1 (32-36) g/dL RDW Std Deviation 44.4 (36.4-46.3) fL RDW Coeff of Shine 13.9 (11.5-14.5) % Plt Count 186 (130-400) K/uL MPV 9.1 (7.4-10.4) fL Immature Gran % (Auto) 0.5 % Neut % (Auto) 79.3 % Lymph % (Auto) 13.1 % Walton % (Auto) 5.4 % Eos % (Auto) 1.2 % Baso % (Auto) 0.5 % Immature Gran # (Auto) 0.05 H (0.00-0.02) K/uL Neut # (Auto) 7.23 H (1.4-6.5) K/uL Lymph # (Auto) 1.20 (1.2-3.4) K/uL Walton # (Auto) 0.49 (0.11-0.59) K/uL Eos # (Auto) 0.11 (0-0.5) K/uL Baso # (Auto) 0.05 (0-0.2) K/uL PT (9.0-12.0) Seconds INR (0.9-1.1) APTT (21.0-31.0) Seconds PTT Ratio Sodium (136-145) mmol/L Potassium (3.5-5.1) mmol/L Chloride (98-107) mmol/L Carbon Dioxide (21-32) mmol/L Anion Gap (3-11) BUN (7-18) mg/dl Creatinine (0.6-1.4) mg/dl Est Cr Clr Drug Dosing ml/min Est GFR ( Amer) Est GFR (Non-Af Amer) BUN/Creatinine Ratio (10-20) Glucose (70-99) mg/dl Calcium (8.5-10.1) mg/dl Total Bilirubin (0.2-1) mg/dl AST (15-37) U/L ALT (12-78) U/L Alkaline Phosphatase (45-117) U/L POC Troponin I (0-0.045) ng/ml Troponin I (0-0.045) ng/ml Total Protein (6.4-8.2) gm/dl Albumin (3.4-5.0) gm/dl Globulin (2.5-4.0) gm/dl Albumin/Globulin Ratio (0.9-2) Lipase (73-393) U/L Medications Administered Current Inpatient Medications Acetaminophen (Tylenol) 650 mg PO Q4H PRN PRN Reason: Mild Pain (scale 1-3) Stop: 02/20/19 22:21 Aspirin (Ecotrin Ectab) [facility] [place]: 02/21/19 08:59 Atorvastatin Calcium (Lipitor) 80 mg PO QAM [facility] Stop: 02/21/19 08:59 Sodium Chloride (Nss 1000ml) 1,000 mls @ 100 mls/hr IV .Q10H [facility] Stop: 01/22/19 05:59 Last Admin: 01/21/19 22:30 Dose: 100 mls/hr Lisinopril (Zestril) 10 mg PO QAM [facility] Stop: 02/21/19 08:59 Metoprolol Tartrate (Lopressor) 25 mg PO BID [facility] Stop: 02/21/19 08:59 Ondansetron HCl (Zofran) 4 mg IV Q6H PRN PRN Reason: Nausea And Vomiting Stop: 02/20/19 22:21 Ticagrelor (Brilinta) 90 mg PO BID [facility] Stop: 02/21/19 08:59 Code Status & VTE Plan Code Status Full Critical Care Time Total critical care time was 40 minutes Critical Care Time: Yes Total Critical Care Time: 40 Supervising Physician Co-Signing Physician Notes Attending addendum: I have physically seen this patient, have supervised the medical residents activities, and agree with the H&P unless as otherwise noted. Assessment and Plan: Inferior wall STEMI/RCA occlusion with 3 RUPERT-- The patient will be admitted to the ICU for serial cardiac enzymes, serial EKG' s, cardiac rhythm monitoring and a 2-D echocardiogram with Dopplers. Specific post-cath orders per Dr. Rodrigo Reid: Dual antiplatelet therapy, titrating beta-edgar and KRISTAN inhibitor as possible, high-dose statin, FLP and hemoglobin A1c in the a.m. Remainder of orders and notations as noted. Resident Activity Tracking Resident Involvement: Resident Care Provided Care Provided: Adult [facility]
[2019-01-22 04:20] LABS: Basophils # (auto) 0.05 K/uL (0-0.2); Basophils % (auto) 0.6 %; Eosinophils # (auto) 0.11 K/uL (0-0.5); Eosinophils % (auto) 1.3 %; Hematocrit (blood only) 38.2 % (42-52); Hemoglobin 12.9 g/dL (14.0-18.0); Immature Granulocytes # (auto) 0.05 K/uL (0.00-0.02); Immature Granulocytes % (auto) 0.6 %; Lymphocytes # (auto) 1.54 K/uL (1.2-3.4); Lymphocytes % (auto) 17.9 %; Mean Corpuscular Hgb Conc 33.8 g/dL (32-36); Mean Corpuscular Volume 87.2 fL (80-100); Monocytes # (auto) 0.86 K/uL (0.11-0.59); Neutrophils # (auto) 5.97 K/uL (1.4-6.5); Neutrophils % (auto) 69.6 %; Platelet Count 197 K/uL (130-400); RDW Coefficient of Variation 13.8 % (11.5-14.5); RDW Standard Deviation 44.3 fL (36.4-46.3); Red Blood Count 4.38 M/uL (4.7-6.1); White Blood Count 8.58 K/uL (4.8-10.8)
[2019-01-22 04:50] LABS: Troponin I 29.9 ng/ml (0-0.045)
[2019-01-22 06:24] LABS: Estimated Average Glucose 120 mg/dl
[2019-01-22] MEDS: ATORVASTATIN 40 MG TAB PO SCH (08:19)
[2019-01-22] MEDS: LISINOPRIL 5 MG TAB PO SCH (08:19)
[2019-01-22] MEDS: TICAGRELOR 90 MG TAB PO SCH ×2 (08:19→20:01)
[2019-01-22] MEDS: ASPIRIN 81 MG ECTAB PO SCH (08:20)
[2019-01-22] MEDS: METOPROLOL TARTRATE 25 MG TAB PO SCH ×2 (09:50→20:06)
[2019-01-22 10:50] LABS: Calcium 8.6 mg/dl (8.5-10.1); Creatinine Clr Calc Pharmacy 79.1 ml/min; Est GFR (African American) 80.5; Est GFR (Non-African American) 69.5; Magnesium 2.2 mg/dl (1.8-2.4); Potassium 3.9 mmol/L (3.5-5.1)
[2019-01-22 10:57] LABS: Troponin I 30.9 ng/ml (0-0.045)
--- NOTE | 2019-01-22 11:40 | Critical Care Consultation ---
Date of Consultation January 22, 2019 Assessment & Plan (1) ST elevation myocardial infarction (STEMI) of inferior wall: Impression: 1. Inferior wall ST elevation [place] status post 3 RUPERT to RCA. 2. Hypertension. 3. Nicotine abuse and chewing form. 4. Hyperlipidemia. Plan: 1. Post PCI care per Dr. Reid. 2. Patient started on day 2 medications post PCI. 3. Ambulatory without any difficulty or symptoms. 4. Nicotine cessation counseling. 5. Antiplatelets, lipid lowering agent, KRISTAN inhibitor, and beta-edgar all started. No further recommendations from critical care standpoint, discussed on rounds with with the staff, CCM time was 35 minutes. History of Present Illness Reason for Consultation: ST elevation [place] Requesting Physician: Dr. Reid Attending Physician: Rodrigo Reid MD History of Present Illness Dear Dr. Reid: Thank you for the kind referral Mr. Braden to critical care service. This is 73-year-old gentleman with history of hypertension, hyperlipidemia, has not been taking any medications, he chew tobacco, presented to the hospital after he has been having chest pain, lasted for 1-1/2-hour, he was able to take a shower but after that he felt that he has to seek medical attention. The patient presented to the hospital and was taken to the [facility] where he was found to have critical stenosis of the RCA, 3 stents were placed, the patient was transferred to the ICU for further management. When I saw the patient today in the morning, he appeared to be symptomatic free , he does not have any chest pain or shortness of breath, ambulatory, denies any nausea, no change in bowel movements or urine habits, no increased swelling in his lower extremities. He does not like to take medications according to him. But he has to do so at the moment. Family history is noncontributory. The patient is non-smoker lifetime but he chewed tobacco for the past 4 years. No previous surgical history on the chest cavity. Allergies Allergy/AdvReac Type Severity Reaction Status Date / Time No Known Allergies Allergy Unverified 10/19/12 09:07 Home Medications Home Medications Medication Instructions Recorded Confirmed Type LISINOPRIL (PRINIVIL) 10 mg PO QAM #0 tab 10/19/12 History SIMVASTATIN (ZOCOR) 40 mg PO QAM #0 tab 10/19/12 History OXYCODONE HCL (OXYCODONE HCL ER) 10 mg PO Q12 #20 12/05/12 Rx XRL10 10 mg PO QAM 14 Days #0 12/05/12 Rx Patient History Medical History Obesity Hyperlipidemia Hypertension (Chronic) No significant past surgical history Family History Other Family history non-contributory Social History Current Living Situation: Spouse Other Information That Helps Us Care for You: No Feels Safe at Home: Yes Safety Concerns: Feels Safe At This Time Smoking Status: Current every day smoker Tobacco Type: smokeless tobacco Hx Substance Use: No Beliefs That Will Affect Care: None Communication Ability: Effective Review of Systems 10 systems has been reviewed, otherwise were unremarkable. Physical Exam 2 Vital Signs (Past 24 Hours): Last Vital Signs Temp 36.8 C 01/22/19 04:07 Pulse 77 01/22/19 09:58 Resp 17 01/22/19 09:58 BP 146/84 H 01/22/19 09:58 Pulse Ox 96 01/22/19 09:58 Physical Exam: Vital signs are stable, S1-S2 regular rate and rhythm, lungs are clear, abdomen is benign, no edema, no pain in his calves, no rash and no oral lesion. Neurologically he is intact. The site of the insertion of the PCI catheter is well maintained and not indurated. Results & Data Laboratory Results Labs were reviewed which showed normal CBC, BMP, troponin is elevated to 30. Diagnostic Findings No cardiopulmonary disease noted. On the chest x-ray.
--- NOTE | 2019-01-22 12:55 | Hospitalist Progress Note ---
Date of Service January 22, 2019 Assessment & Plan (1) ST elevation myocardial infarction (STEMI) of inferior wall: S/p 3 RUPERT to the distal RCA with Dr. Reid on 01/21. Also showed diffuse 60% disease and small mid LAD, diffuse apical LAD disease, 70% disease in small OM 2. - Continue ASA 81mg daily, ticagrelor 90mg PO BID, atorvastatin 80mg PO QAM, metoprolol 50mg PO BID, and lisinopril 10mg PO QAM. - Continue telemetry. - Echo on 01/22 showed EF 50-55% with base to mid-inferior hypokinesis. (2) Hypertension: BP currently 110/70 on beta-edgar and ACEi. - Monitor (3) Tobacco abuse: Counseled cessation. (4) DVT prophylaxis: Lovenox Subjective 73yo M w/ hx of tobacco use and HTN who present with inferior STEMI. This morning, he is in good spirits. He has no chest pain. Feels well. Reports no fevers/chills, shortness of breath, abdominal pain, nausea, or vomiting. Physical Exam 2 Vital Signs (Past 24 Hours): Last Vital Signs Temp 37.2 C 01/22/19 12:01 Pulse 61 01/22/19 12:02 Resp 19 01/22/19 12:02 BP 107/68 01/22/19 12:01 Pulse Ox 96 01/22/19 12:02 Constitutional: WD/WN, vitals as above Eyes: EOM intact bilaterally; no conjunctival abnormality ENMT: external ear and nose normal, oropharynx normal Neck: trachea midline, no thyromegaly normal visual inspection Respiratory: normal respiratory effort, lungs clear to auscultation no respiratory distress Cardiovascular: RRR, no murmur, no edema Gastrointestinal (Abdomen): Inspection/Auscultation: abdomen normal to inspection; abdomen not distended Musculoskeletal: no cyanosis or clubbing, extremities motor strength 5/5 Skin: no rashes, warm and dry Neurologic: moves all extremities and awake Psychiatric: Orientation: alert, oriented to person and cooperative
--- NOTE | 2019-01-22 16:52 | Cardiology Progress Note ---
Date of Service January 22, 2019 Assessment & Plan (1) ST elevation myocardial infarction (STEMI) of inferior wall: 2. Hypertension 3. Dyslipidemia Patient chest pain-free post PCI. Has remained hemodynamically and electrically stable. No signs of heart failure. Troponin peaking. LV function preserved on echocardiogram. Follow-up labs stable, no access site complications. Based on coronary anatomy, and only moderately elevated troponin suspect yesterday's event represented an acute occlusion on top of more chronic severe RCA disease. Today doing well and from a cardiac standpoint okay for transfer to telemetry. Continue dual antiplatelet therapy with aspirin, ticagrelor. Continue current beta-edgar, KRISTAN inhibitor. Continue high intensity statin. Tentatively plan on discharge tomorrow if stable overnight. Subjective Feeling well. No recurrent chest pain. No shortness of breath. Telemetry reviewno events. Echocardiogram reviewedLV function preserved. Moderate basal to mid inferior hypokinesis. Review of Systems 10 point review of systems was completed and was otherwise negative unless stated in HPI Physical Exam 2 Vital Signs (Past 24 Hours): Last Vital Signs Temp 37 C 01/22/19 16:00 Pulse 55 L 01/22/19 16:00 Resp 20 01/22/19 16:00 BP 108/50 L 01/22/19 16:00 Pulse Ox 97 01/22/19 16:00 Physical Exam: General: Comfortable, no acute distress Eyes: Sclerae anicteric, extraocular movements intact HENT: Oropharynx clear mucous membranes moist Neck: Normal carotid upstrokes, no bruits. No JVD. Lungs: Clear to auscultation bilaterally, no rhonchi or wheezes Cardiac: Regular rate and rhythm, no murmurs, rubs or gallops. Vascular: Right radial artery access site with mild ecchymosis, no hematoma. Distal pulse and sensation intact. Abdomen: Soft, nontender, nondistended, positive bowel sounds. Extremities: Well perfused, no peripheral edema Skin: No rashes or lesions. Neuro: Nonfocal Psych: Alert orient x3, normal affect and mood
[2019-01-23 08:03] LABS: BUN Creatinine Ratio 19.8 (10-20); Calcium 8.5 mg/dl (8.5-10.1); Creatinine Clr Calc Pharmacy 69.5 ml/min; Est GFR (African American) 69.4; Est GFR (Non-African American) 59.9; Potassium 4.2 mmol/L (3.5-5.1)
[2019-01-23 08:08] LABS: Troponin I 10.6 ng/ml (0-0.045)
[2019-01-23] MEDS: METOPROLOL TARTRATE 25 MG TAB PO SCH (08:09)
[2019-01-23] MEDS: LISINOPRIL 5 MG TAB PO SCH (08:35)
[2019-01-23] MEDS: ASPIRIN 81 MG ECTAB PO SCH (08:36)
[2019-01-23] MEDS: TICAGRELOR 90 MG TAB PO SCH (08:36)
[2019-01-23] MEDS: ATORVASTATIN 40 MG TAB PO SCH (08:36)
[2019-01-23] MEDS ORDERED: ENOXAPARIN INJ 40 MG/0.4 ML SYR SQ SCH (09:00)
--- NOTE | 2019-01-23 14:07 | Hospitalist Progress Note ---
Date of Service January 23, 2019 Assessment & Plan (1) ST elevation myocardial infarction (STEMI) of inferior wall: S/p 3 RUPERT to the distal RCA with Dr. Reid on 01/21. Also showed diffuse 60% disease and small mid LAD, diffuse apical LAD disease, 70% disease in small OM 2. - Continued ASA 81mg daily, ticagrelor 90mg PO BID, atorvastatin 80mg PO QAM, metoprolol 50mg PO BID, and lisinopril 10mg PO QAM. - Echo on 01/22 showed EF 50-55% with base to mid-inferior hypokinesis. - On discharge, continued on above regimen. Will follow up outpatient. (2) Hypertension: BP currently 110/70 on beta-edgar and ACEi. - Monitor (3) Tobacco abuse: Counseled cessation. (4) DVT prophylaxis: Lovenox Subjective 73yo M w/ hx of tobacco use and HTN who present with inferior STEMI. This morning, he felt well. No further chest pain. Reports no fevers/chills, shortness of breath, abdominal pain, nausea, or vomiting. Physical Exam 2 Vital Signs (Past 24 Hours): Last Vital Signs Temp 36.5 C 01/23/19 10:39 Pulse 85 01/23/19 10:39 Resp 17 01/23/19 10:39 BP 104/61 01/23/19 10:39 Pulse Ox 95 01/23/19 10:39 Constitutional: WD/WN, vitals as above Eyes: EOM intact bilaterally; no conjunctival abnormality ENMT: external ear and nose normal, oropharynx normal Neck: trachea midline, no thyromegaly normal visual inspection Respiratory: normal respiratory effort, lungs clear to auscultation no respiratory distress Cardiovascular: RRR, no murmur, no edema Gastrointestinal (Abdomen): Inspection/Auscultation: abdomen normal to inspection; abdomen not distended Musculoskeletal: no cyanosis or clubbing, extremities motor strength 5/5 Skin: no rashes, warm and dry Neurologic: moves all extremities and awake Psychiatric: Orientation: alert, oriented to person and cooperative
[2019-01-24] MEDS ORDERED: METOPROLOL SUCC 25MG EXT REL TAB PO SCH (09:00)
--- NOTE | 2019-01-24 12:16 | Discharge Summary ---
Date of Service January 23, 2019 Admission HPI Per Admitting Provider 73yo M who was brought in by EMS for STEMI. Patient had been shoveling snow earlier today and noted intermittent CP while doing so. He felt fine afterwards , but notes at about 5:30 pm, he had acute, sudden onset central chest pain. 911 was called and he was noted to have STEMI in inferior leads. He denies any significant PMH, however he takes lisinopril and zocor at home, indicating likely HTN and HLD. He is a never smoker, however does chew tobacco. He denies any family history of heart attacks, but notes his mother had some heart issues. Patient was brought in as a heart alert and underwent successful X RAY EQUIPMENT TESTER with placement of 3x RUPERT in RCA. Specialty Data Cardiology Cardiac catheterization/PCI 01/21/2019: Summary: 1. Inferior STEMI/Occluded mid RCA, 80-90% proximal RCA, diffuse mid to distal 60% RCA disease 2. Moderate to severe multi--vessel non-culprit coronary artery disease -Diffuse 60% disease and small mid LAD, diffuse apical LAD disease 70% disease in small OM 2 3. Borderline intracardiac filling pressure 4. Successful PCI of RCA occlusion and diffuse disease with 3 overlapping drug- eluting stents (3.0 x 12, 3.0 x 38, 3.0 x 34 Suraj; postdilated with 3.5 NC) Echo 01/22/2019: LVEF 50-55%, base to mid inferior moderate hypokinesis. Mildly dilated RV with normal function. No significant valvular pathology. Discharge Data Consultations 01/21/19 21:23 Consult Furniture Crater Routine 01/21/19 22:27 Consult Cardiac Rehabilitation Routine Procedures Performed Operation Date: 01/21/19 19:55 Actual Procedures p Cath, Left with Cors and Vent - Darrell Reid MD s Cineradiography w/Routine Exam - Darrell Reid MD s Aspiration/PCI w/RUPERT for Stemi - Darrell Reid MD Hospital Course (1) ST elevation myocardial infarction (STEMI) of inferior wall: 2. Hypertension 3. Dyslipidemia Cardiac catheterization revealed an occluded mid RCA with severe diffuse disease following reestablish flow. Treated with PCI and 3 overlapping drug- eluting stents across proximal to distal segment. Noted to have moderate to severe diffuse non-culprit disease which we will plan to medically manage. Troponin peaked at 30. Echo showed preserved LV function with moderate base to mid inferior hypokinesis. Discharged home on hospital day 3 on dual antiplatelet therapy with aspirin, ticagrelor. Follow-up with cardiology in 2-3 weeks. Discharge Instructions Home Medications LISINOPRIL (PRINIVIL) 10 mg PO QAM #0 tab 10/19/12 [History] OXYCODONE HCL (OXYCODONE HCL ER) 10 mg PO Q12 #20 12/05/12 [Rx] XRL10 10 mg PO QAM 14 Days #0 12/05/12 [Rx] aspirin [Ecotrin Low Strength] 81 mg PO QAM 30 Days #30 tab 01/23/19 [Rx] atorvastatin 80 mg PO QAM 30 Days #30 tab 01/23/19 [Rx] metoprolol succinate 25 mg PO QAM 30 Days #30 tab 01/23/19 [Rx] ticagrelor [Brilinta] 90 mg PO BID 30 Days #60 tab 01/23/19 [Rx]
== END 2019-01-23 11:14 | disposition home or self-care (01) | DRG 247 ==
LOC: ED 20:03 → 1E 20:21 → CC 20:21 → 1E 21:22 → 2S 01-22 16:34

== ENCOUNTER 2021-08-02 19:42 | Observation (INO) ==
[2021-08-02] MEDS ORDERED: ASPIRIN CHEW 324 MG PO STA (20:02)
--- NOTE | 2021-08-02 20:07 | Emergency Department Note ---
Impression & Plan Precordial chest pain, SOB (shortness of breath), Fatigue, CAD (coronary atherosclerotic disease) ED Provider Note NAME: CHARLIE NEIL JR AGE: 76 SEX: M : 1945 ARRIVES VIA: Walk-In INFORMANT: [Patient] ED PROVIDER(S): [Shane Rose MD] CHIEF COMPLAINT: Chest pain HISTORY OF PRESENT ILLNESS: The patient is a 76-year-old male who presents to the ED with around 5 hours of chest discomfort. The pain was on the left side just below his breast. The pain was moderate in severity and was a pressure and ache. He was driving when the pain began. After an hour or so, maybe longer, the pain seemed to subside. 3 hours ago, the pain came back although it was not as severe. He was sitting when the pain began a second time. The patient states that he then decided to mow the lawn. He felt very fatigued and short of breath mowing the lawn but did not have any worsening or any increased chest pain. Patient denies any nausea or sweating from the pain. Patient felt this may be gas pain and has been burping a lot on purpose to try to relieve the gas. The patient came to the ED because, a few years ago, he had similar symptoms that turned out to be heart related. He has 3 coronary stents. Of note, the patient has been fatigued and exhausted for the last several months. Today was the first time he really experienced any chest pain. REVIEW OF SYSTEMS: See HPI for pertinent positives and negatives. A total of ten systems were reviewed and were otherwise negative. PMHx/PSHx: See Below SOCIAL HISTORY: See Below. PHYSICAL EXAM: GENERAL: Patient is in no acute distress. HEENT: No acute trauma, normocephalic atraumatic, mucous membranes moist, no nasal congestion, no scleral icterus. NECK: No stridor, no adenopathy, no meningismus, trachea is midline. LUNGS: Clear to auscultation bilaterally, no wheeze, no rhonchi, breath sounds equal. Chest: Nontender chest wall. HEART: Without murmurs gallops or rubs, regular rate and rhythm. ABDOMEN: Soft, nontender, bowel sounds positive, no hernias, no peritonitis. EXTREMITIES: No cyanosis or edema, full range of motion of all the joints without pain or difficulty, no signs for acute trauma. NEUROLOGIC: Oriented x 3, no acute motor or sensory deficits, no focal weakness. SKIN: No rash, no jaundice, no diaphoresis. DIFFERENTIAL DIAGNOSIS: Cardiac ischemia, aortic dissection, pulmonary embolism, pneumothorax, pneumonia, pericarditis, myocarditis, esophageal rupture, GERD, cholecystitis, pancreatitis, musculoskeletal, as well as other pathologies. EMERGENCY DEPARTMENT COURSE/PROCEDURES: ECG: Indication was chest pain. The ECG shows a normal sinus rhythm with a rate of 80. There is no ST elevation, no PVCs. The QTc is 415. Continuous Cardiac Monitoring: An order was placed for continuous cardiac monitoring. The monitor shows a rate of 87 with normal sinus rhythm. MEDICAL DECISION MAKING: There is no leukocytosis or concerning anemia. There is a normal platelet count. No coagulopathy. No significant electrolyte abnormality or kidney failure. No evidence for liver enzyme elevation. No evidence for pancreatitis. ECG shows a normal sinus rhythm, no acute ischemia. Cardiac enzyme testing x1 is not consistent with acute cardiac injury. Chest film does not show pneumonia or CHF. There was no pneumothorax. Patient was given oral aspirin, he is currently resting comfortably. The patient presents with chest pain that was reminiscent of his previous MT. He has been fatigued lately and was quite short of breath mowing the grass today. I do think further cardiac work-up is warranted. I spoke with the patient and case management. The on-call hospitalist has been consulted. Past Med/Surg History Medical History (Updated 08/02/21 @ 21:40 by Shane Rose MD) Hyperlipidemia Hypertension Obesity Surgical History No significant past surgical history Family History Other Family history non-contributory Social History Smoking Status: Current every day smoker Tobacco Type: Smokeless Tobacco (Dip or Chew) Second Hand Exposure: No; Hx Alcohol Use: Yes Alcohol type: beer Hx Substance Use: No Preferred Language: Persian Communication Ability: Effective Semiconductor Assembler Required: Yes Beliefs That Will Affect Care: None Current Living Situation: Spouse current occupation: Retired Feels Safe at Home: Yes Assistive Devices: Denture - Upper, Denture - Lower and Glasses Allergies Allergies Allergy/AdvReac Type Severity Reaction Status Date / Time No Known Drug Allergies Allergy Unknown Verified 08/02/21 21:12 Home Meds Home Medications Medication Instructions Recorded Confirmed aspirin 81 mg tablet,delayed 81 mg PO QAM tab 09/28/19 08/02/21 release diclofenac sodium 75 mg 75 mg PO BID PRN 08/02/21 08/02/21 tablet,delayed release pantoprazole 20 mg tablet,delayed 20 mg PO QAM 08/02/21 08/02/21 release tamsulosin 0.4 mg capsule 0.8 mg PO DAILY 08/02/21 08/02/21 Previous Rx's Medication Instructions Recorded clopidogrel 75 mg tablet 75 mg PO QAM #90 tab 02/24/20 isosorbide mononitrate 30 mg 30 mg PO DAILY #90 tab 02/14/21 tablet,extended release 24 hr atorvastatin 80 mg tablet 80 mg PO QAM #30 tab 08/02/21 Results & Data (ED) Vital Signs Vital Signs - 24 hr 08/02/21 19:46 08/02/21 20:00 08/02/21 20:02 Temperature 36.6 C Temperature Source Temporal Artery Scan Pulse Rate 87 Pulse Rate [Apical] 76 Pulse Rhythm [Apical] Regular Pulse Strength [Apical] Normal Respiratory Rate 18 16 Respiratory Effort / Characteristics Non-Labored Spontaneous Non-Labored Respiratory Depth Normal Normal Respiratory Pattern Regular Blood Pressure [Left Arm] 184/99 H Blood Pressure Mean [Left Arm] 127 Blood Pressure Position Sitting Pulse Oximetry 99 99 99 Oxygen Delivery Method Room Air Room Air Room Air Sepsis Recent Fever Within 48 Hours No Sepsis New/Unexplained Change in Mental Status No Sepsis Action Taken by Nursing No Action Required Home Medications Current Medication List: was personally reviewed by me Laboratory Data Attestation: I reviewed the patient's lab results. Result diagrams: 08/02/21 20:02 08/02/21 20:02 Lab Results 08/02/21 08/02/21 08/02/21 Range/Units 20:02 20:02 20:02 WBC 8.64 (4.8-10.8) K/uL RBC 4.81 (4.7-6.1) M/uL Hgb 13.6 L (14.0-18.0) g/dL Hct 40.5 L (42-52) % MCV 84.2 (80-100) fL MCH 28.3 (25-34) pg MCHC 33.6 (32-36) g/dL RDW Std Deviation 46.0 (36.4-46.3) fL RDW Coeff of Shine 14.9 H (11.5-14.5) % Plt Count 193 (130-400) K/uL MPV 8.5 (7.4-10.4) fL Immature Gran % (Auto) 0.3 % Neut % (Auto) 75.6 % Lymph % (Auto) 13.5 % Anderson % (Auto) 8.6 % Eos % (Auto) 1.2 % Baso % (Auto) 0.8 % Neut # (Auto) 6.53 H (1.4-6.5) K/uL Lymph # (Auto) 1.17 L (1.2-3.4) K/uL Anderson # (Auto) 0.74 H (0.11-0.59) K/uL Eos # (Auto) 0.10 (0-0.5) K/uL Baso # (Auto) 0.07 (0-0.2) K/uL Immature Gran # (Auto) 0.03 H (0.00-0.02) K/uL PT 10.0 (9.0-12.0) Seconds INR 1.0 (0.9-1.1) APTT 23.1 (21.0-31.0) Seconds PTT Ratio 0.9 Sodium 139 (136-145) mmol/L Potassium 3.9 (3.5-5.1) mmol/L Chloride 108 H (98-107) mmol/L Carbon Dioxide 27 (21-32) mmol/L Anion Gap 4.0 (3-11) BUN 22 H (7-18) mg/dl Creatinine 1.20 (0.6-1.4) mg/dl Est Cr Clr Drug Dosing 57.5 ml/min Est GFR ( Amer) 68.6 ml/min Est GFR (Non-Af Amer) 59.2 ml/min BUN/Creatinine Ratio 18.1 (10-20) Glucose 87 (70-99) mg/dl Calcium 8.7 (8.5-10.1) mg/dl Total Bilirubin 0.7 (0.2-1) mg/dl AST 30 (15-37) U/L ALT 35 (12-78) U/L Alkaline Phosphatase 79 (45-117) U/L Troponin I < 0.015 (0-0.045) ng/ml Total Protein 7.6 (6.4-8.2) gm/dl Albumin 3.7 (3.4-5.0) gm/dl Globulin 3.9 (2.5-4.0) gm/dl Albumin/Globulin Ratio 0.9 (0.9-2) Lipase 150 (73-393) U/L Administered Medications Discontinued Medications Aspirin (Aspirin Chew 324 Mg) 324 mg PO NOW STA Stop: 08/02/21 20:03 Last Admin: 08/02/21 20:14 Dose: 324 mg Documented by: [id number] Imaging Data Radiologist's Impression: Chest X-Ray 08/02/21 20:02 XR chest 1V portable CLINICAL HISTORY: Chest Pain COMPARISON STUDY: September 28, 2019 FINDINGS: No pneumothorax. No pleural effusion. Minimal atelectasis is seen at the left base. Cardiomediastinal silhouette is within normal limits in size. No significant pulmonary vascular congestion.. Osseous structures: Degenerative changes of the spine IMPRESSION: 1. Minimal atelectasis at the left base ACT 112: Negative or not required by law. The above report was generated using voice recognition software. It may contain grammatical, syntax or spelling errors. Electronically signed by: Aparna García DO 08/02/2021 8:52 PM Discharge Plan Visit Data Chief Complaint: Cardiac Assessment Stated Complaint: CHEST DISCOMFORT ED Provider: Shane Rose Discharge Problem: Precordial chest pain, SOB (shortness of breath), Fatigue, CAD (coronary atherosclerotic disease) Patient Disposition: Admitted As Inpatient Condition: Good Forms Stand Alone Forms: [facility] Prescriptions Prescriptions: No Action clopidogrel 75 mg tablet 75 mg PO QAM Qty: 90 RF: 3 isosorbide mononitrate 30 mg tablet extended release 24 hr 30 mg PO DAILY Qty: 90 RF: 3 atorvastatin 80 mg tablet 80 mg PO QAM Qty: 30 RF: 0 aspirin 81 mg tablet,delayed release (DR/EC) 81 mg PO QAM RF: 0 pantoprazole 20 mg tablet,delayed release (DR/EC) 20 mg PO QAM RF: 0 tamsulosin 0.4 mg capsule 0.8 mg PO DAILY RF: 0 diclofenac sodium 75 mg tablet,delayed release (DR/EC) 75 mg PO BID PRN (Reason: Pain) RF: 0 Referrals Referrals: Alonzo Mcginnis MD [Primary Care Provider] -
[2021-08-02 20:13] LABS: Basophils # (auto) 0.07 K/uL (0-0.2); Basophils % (auto) 0.8 %; Eosinophils % (auto) 1.2 %; Hematocrit (blood only) 40.5 % (42-52); Hemoglobin 13.6 g/dL (14.0-18.0); Immature Granulocytes # (auto) 0.03 K/uL (0.00-0.02); Immature Granulocytes % (auto) 0.3 %; Lymphocytes # (auto) 1.17 K/uL (1.2-3.4); Lymphocytes % (auto) 13.5 %; Mean Corpuscular Hemoglobin 28.3 pg (25-34); Mean Corpuscular Hgb Conc 33.6 g/dL (32-36); Mean Corpuscular Volume 84.2 fL (80-100); Mean Platelet Volume 8.5 fL (7.4-10.4); Monocytes # (auto) 0.74 K/uL (0.11-0.59); Monocytes % (auto) 8.6 %; Neutrophils # (auto) 6.53 K/uL (1.4-6.5); Neutrophils % (auto) 75.6 %; Platelet Count 193 K/uL (130-400); RDW Coefficient of Variation 14.9 % (11.5-14.5); Red Blood Count 4.81 M/uL (4.7-6.1); White Blood Count 8.64 K/uL (4.8-10.8)
[2021-08-02 20:24] LABS: Partial Thromboplastin Ratio 0.9; Partial Thromboplastin Time 23.1 Seconds (21.0-31.0)
[2021-08-02 20:32] LABS: Alanine Aminotransferase 35 U/L (12-78); Albumin Level 3.7 gm/dl (3.4-5.0); Aspartate Aminotransferase 30 U/L (15-37); BUN Creatinine Ratio 18.1 (10-20); Blood Urea Nitrogen 22 mg/dl (7-18); Calcium 8.7 mg/dl (8.5-10.1); Carbon Dioxide 27 mmol/L (21-32); Chloride 108 mmol/L (98-107); Creatinine Clr Calc Pharmacy 57.5 ml/min; Est GFR (African American) 68.6 ml/min; Est GFR (Non-African American) 59.2 ml/min; Glucose 87 mg/dl (70-99); Lipase 150 U/L (73-393); Potassium 3.9 mmol/L (3.5-5.1); Sodium 139 mmol/L (136-145)
[2021-08-02 20:37] LABS: Albumin Globulin Ratio 0.9 (0.9-2); Alkaline Phosphatase 79 U/L (45-117); Bilirubin,Total 0.7 mg/dl (0.2-1); Globulin 3.9 gm/dl (2.5-4.0); Total Protein 7.6 gm/dl (6.4-8.2); Troponin I < 0.015 ng/ml (0-0.045)
--- NOTE | 2021-08-02 20:54 | XRay Report ---
XR chest 1V portable CLINICAL HISTORY: Chest Pain COMPARISON STUDY: September 28, 2019 FINDINGS: No pneumothorax. No pleural effusion. Minimal atelectasis is seen at the left base. Cardiomediastinal silhouette is within normal limits in size. No significant pulmonary vascular congestion.. Osseous structures: Degenerative changes of the spine IMPRESSION: 1. Minimal atelectasis at the left base ACT 112: Negative or not required by law. The above report was generated using voice recognition software. It may contain grammatical, syntax o r spelling errors. Electronically signed by: Aparna García DO 08/02/2021 8:52 PM
[2021-08-03] MEDS ORDERED: ACETAMINOPHEN 325 MG TAB PO PRN (00:03)
[2021-08-03] MEDS ORDERED: POLYETHYLENE (MIRALAX) 17 GM PACK PO PRN (00:03)
[2021-08-03] MEDS ORDERED: NITROGLYCERIN SL 0.4 MG/TAB TAB SL PRN (00:03)
[2021-08-03] MEDS ORDERED: ONDANSETRON INJ 2 MG/ML 2 ML VIAL IV PRN (00:03)
--- NOTE | 2021-08-03 01:28 | History and Physical Report ---
DATE OF ADMISSION: 08/02/2021. CHIEF COMPLAINT: Chest pain. HISTORY OF PRESENT ILLNESS: A 76-year-old male with past medical history significant for hyperlipidemia, prediabetes, CAD status post stents, hypertension, GERD, BPH, chronic kidney disease stage III, history of tobacco abuse, history of pituitary macroadenoma, comes because of chest pain. The patient around 3:00 in afternoon, he was driving the car when he noticed chest discomfort which lasted for about 15 minutes. At home again it came and resolved and then he went for mowing his grass. After mowing the grass, he felt short of breath, weak, tired, fatigued, so that is the reason he says his daughter wanted him to come and get checked. Currently, resting comfortably and hemodynamically stable. Denies any headache. No blurred visions, no earache, no runny nose, no sore throat, no cough, no fevers. Appetite is good. No dysphagia, no shortness of breath, no sweating. Currently, no nausea, no abdominal pain. Normal bowel and bladder movements. Otherwise ambulates okay. ALLERGIES: No known drug allergies. PAST MEDICAL HISTORY: As mentioned above. PAST SURGICAL HISTORY: Neck spine fusion surgery, stereotactic cranial intradural navigation status post cardiac catheterization and stent placement. MEDICATIONS: The patient is on aspirin 81 mg p.o. daily, atorvastatin 80 mg p.o. daily, Plavix 75 mg p.o. daily, diclofenac sodium 75 mg p.o. b.i.d. p.r.n., isosorbide mononitrate 30 mg p.o. daily, Protonix 20 mg p.o. a.m., Flomax 0.8 mg p.o. daily. FAMILY HISTORY: Significant for no family history on file. SOCIAL HISTORY: , no smoking. Social drinking, no drug use. REVIEW OF SYSTEMS: As per HPI. Rest of the review of systems is negative. PHYSICAL EXAMINATION: GENERAL: The patient is of moderate build, not in acute distress. VITAL SIGNS: Temperature 36.6, pulse 74, respiratory rate 20, blood pressure 148/68, oxygen 97% on room air. HEENT: Pupils equal, round and reactive to light. Oral mucosa moist. NECK: No JVD, no neck masses. CARDIOVASCULAR: S1 and S2 heard. Regular rate and rhythm. No murmur, no gallop. RESPIRATORY SYSTEM: Normal AP diameter. No accessory muscle use. No wheezing, no crackles. ABDOMEN: Soft, bowel sounds present, nontender, no distention. CENTRAL NERVOUS SYSTEM: Cranial nerves II-XII grossly intact, nonfocal. EXTREMITIES: No edema, no erythema. LABORATORY DATA: WBC 8.6, hemoglobin 13.6, hematocrit 40.5, platelets 193. PT 10, INR 1, APTT 23.1, sodium 139, potassium 3.9, chloride 108, bicarbonate 27, BUN 22, creatinine 1.2, serum glucose 87, calcium 8.7, total bilirubin 0.7, AST 30, ALT 35, alkaline phosphatase 79. Troponin I less than 0.015. Lipase 115. SARS-CoV-2 PCR negative. IMAGING DATA: Chest x-ray, minimal atelectasis of the left base. EKG: Normal sinus rhythm, rate of 80, no significant change was found. ASSESSMENT AND PLAN: This is a 76-year-old male who presents with chest pain. 1. Chest pain: Rule out acute coronary syndrome. History of coronary artery disease, status post stent. Currently, initial workup is negative. We will follow the serial enzymes, echo. Will keep him n.p.o. until seen by cardiology. Consult cardiology in the a.m. for further recommendation. 2. History of coronary artery disease: Status post stent. Continue his aspirin, Plavix, statin, and Imdur. 3. History of hypertension: Continue Imdur. 4. Chronic kidney disease stage III: Currently with a creatinine 1.2. Will follow the labs. 5. Gastroesophageal reflux disease: Continue Protonix. 6. Benign prostatic hypertrophy: Continue Flomax. 7. Hyperlipidemia: Continue statin. 8. Deep venous thrombosis prophylaxis: Sequential compression devices for now. DISPOSITION: Observation in [employer]. Expect to discharge home and follow up with family doctor. Job ID: [id number] [facility]
[2021-08-03 08:07] LABS: Basophils # (auto) 0.04 K/uL (0-0.2); Basophils % (auto) 0.6 %; Eosinophils # (auto) 0.07 K/uL (0-0.5); Eosinophils % (auto) 1.1 %; Hematocrit (blood only) 41.6 % (42-52); Hemoglobin 14.1 g/dL (14.0-18.0); Immature Granulocytes # (auto) 0.02 K/uL (0.00-0.02); Immature Granulocytes % (auto) 0.3 %; Lymphocytes # (auto) 0.78 K/uL (1.2-3.4); Lymphocytes % (auto) 12.1 %; Mean Corpuscular Hgb Conc 33.9 g/dL (32-36); Mean Corpuscular Volume 85.6 fL (80-100); Mean Platelet Volume 8.6 fL (7.4-10.4); Monocytes # (auto) 0.62 K/uL (0.11-0.59); Monocytes % (auto) 9.6 %; Neutrophils % (auto) 76.3 %; Platelet Count 198 K/uL (130-400); RDW Coefficient of Variation 15.2 % (11.5-14.5); RDW Standard Deviation 47.8 fL (36.4-46.3); Red Blood Count 4.86 M/uL (4.7-6.1); White Blood Count 6.43 K/uL (4.8-10.8)
--- NOTE | 2021-08-03 08:15 | XCELERA ---
[id number]
[2021-08-03 08:27] LABS: Blood Urea Nitrogen 17 mg/dl (7-18); Carbon Dioxide 26 mmol/L (21-32); Chloride 111 mmol/L (98-107); Est GFR (African American) 69.3 ml/min; Est GFR (Non-African American) 59.8 ml/min; Glucose 110 mg/dl (70-99); Magnesium 2.3 mg/dl (1.8-2.4); Potassium 3.9 mmol/L (3.5-5.1); Sodium 141 mmol/L (136-145)
[2021-08-03 08:31] LABS: Troponin I < 0.015 ng/ml (0-0.045)
[2021-08-03] MEDS ORDERED: ATORVASTATIN 40 MG TAB PO SCH (09:00)
[2021-08-03] MEDS ORDERED: ISOSORBIDE MONO EXTENDED REL 30 MG TABCR PO SCH (09:00)
[2021-08-03] MEDS ORDERED: TAMSULOSIN HCL 0.4 MG CAP PO SCH (09:00)
[2021-08-03] MEDS ORDERED: CLOPIDOGREL BISULFATE 75 MG TAB PO SCH (09:00)
[2021-08-03] MEDS ORDERED: PANTOprazole 40 MG TAB PO SCH (09:00)
[2021-08-03] MEDS ORDERED: ASPIRIN 81 MG ECTAB PO SCH (09:00)
--- NOTE | 2021-08-03 15:41 | Cardiology Consultation ---
Date of Consultation August 03, 2021 Assessment & Plan (1) Precordial chest pain: (2) Coronary artery disease: (3) S/P coronary artery stent placement: (4) SOB (shortness of breath): (5) Hypertension: (6) Hyperlipidemia: ASSESSMENT/PLAN: 1. Chest pain: Atypical in that it occurred at rest. No objective findings to suggest ischemia as the cause of his symptoms. He does have residual CAD as noted on 2019 cardiac catheterization. Discussed utility of stress test, especially due to dyspnea with exertion while cutting the grass. He states he would be unable to walk on the treadmill. And due to the timing of the day, from a colonic stress test was not readily available. He preferred to be discharged home. Due to atypical nature of his chest discomfort, this was reasonable. He was urged to call 911 for recurrent symptoms that do not resolve within 5 minutes. 2. CAD s/p RCA STEMI and RCA PCI x 3: No definite angina. He did have residual CAD within the LAD and OM 2. Apical LAD disease with felt to be too small to intervene upon, per records. Continue aspirin 81 mg daily indefinitely. Continue high-intensity statin and nitrate therapy. He had been on beta-edgar in the past but is no longer part of his regimen. If tolerated, would consider beta-edgar. 3. Hypertension: Blood pressure mostly elevated throughout the hospital stay. Optimize blood pressure. Will reach out to Lauren Butler, with whom he is scheduled to see later this month. It is not clear if he did not tolerate beta- edgar in the past. Adjustments can be made as appropriate. 4. Dyslipidemia: Continue high-intensity statin therapy. 5. Dyspnea with exertion: He was performing more strenuous activity. We discussed utility of noninvasive ischemic evaluation but he preferred to go home as noted. He appears euvolemic. 6. Disposition: Because there was no objective findings to suggest ischemic event, and his chest pain was atypical, can be discharged from a cardiology standpoint as per patient request. He was urged to call 911 for recurrent symptoms. He has follow-up already arranged in the cardiology office later this month. Patient care communicated with primary hospitalist, Dr. Yanez. Today's visit was 40 minutes in duration, including counseling patient, coor dinating care, communicating with primary hospitalist service and outpatient Cardiology team, reviewing records as noted above, and chart completion. Thank you for allowing me to participate in the care of your patient. Please call for any other questions or concerns. Sincerely, Solitario Riberio M.D. History of Present Illness Reason for Consultation: Chest Pain Requesting Physician: Dr. Forbes Attending Physician: Bao Yanez MD History of Present Illness Mr. Braden is a pleasant 76-year-old gentleman with a history significant for CAD s/p RCA STEMI ad PCI x 3 (01/21/19), residual CAD, hypertension, and dyslipidemia. He was admitted for observation on 08/02/2021 for chest pain. His primary manager business intelligence is Dr. Reid. He was last seen in the office by Dr. Reid on 01/18/2020. He was driving to an appointment in the cardiology office and was told that his appointment was not actually on 08/02/2021 but rather later this month. While driving home, he admi ts that he was agitated, and he developed chest discomfort described as a pressure and an ache on the left side of his chest. He believes it was due to gas as it improved with belching. Symptoms persisted for 15 minutes before completely resolving. He then went outside and used a push mower to cut his grass for approximately 45 minutes. He did not have any further chest discomfort during this more strenuous activity. He did notice some mild dyspnea with exertion and overall felt tired. He later mention symptoms to family who urged him to come to the emergency department. He has not had any further chest discomfort. He denies shortness of breath, syncope, near-syncope, palpitations, edema, or bleeding. He admits that his legs feel tired for approximately 1 year with exertion including a burning sensation that runs down his leg. He believes this is due to back issues. He apparently underwent C-spine surgery in the past which helped improve his gait somewhat. He was seen earlier this afternoon for this consultation and he wanted to go home at that time. He underwent an echocardiogram earlier in the day which demonstrated normal LV systolic function. He would like to follow-up as an outpatient as scheduled later this month with Lauren Butler PA-C, in the cardiology office. Review of systems: As above. Review of systems otherwise negative/unr emarkable. Family history: Mother had cardiac issues. Social history: Denies smoking history. Chews snuff. Occasional alcohol. Three children. Lives at home with his who has medical conditions and therefore he helps care for her. He was unaccompanied today. Allergies Allergy/AdvReac Type Severity Reaction Status Date / Time No Known Drug Allergies Allergy Unknown Verified 08/02/21 21:12 Home Medications Medication Instructions Recorded Confirmed Type aspirin 81 mg tablet,delayed 81 mg PO QAM tab 09/28/19 08/02/21 History release clopidogrel 75 mg tablet 75 mg PO QAM #90 tab 02/24/20 08/02/21 Rx isosorbide mononitrate 30 mg 30 mg PO DAILY #90 tab 02/14/21 08/02/21 Rx tablet,extended release 24 hr diclofenac sodium 75 mg 75 mg PO BID PRN 08/02/21 08/02/21 History tablet,delayed release pantoprazole 20 mg tablet,delayed 20 mg PO QAM 08/02/21 08/02/21 History release tamsulosin 0.4 mg capsule 0.8 mg PO DAILY 08/02/21 08/02/21 History atorvastatin 80 mg tablet 80 mg PO QAM #30 tab 08/03/21 Rx Patient History Medical History Chronic gastroesophageal reflux disease Coronary artery disease Hyperlipidemia Hypertension Obesity Pituitary macroadenoma ST elevation myocardial infarction (STEMI) of inferior wall Surgical History (Updated 08/03/21 @ 19:09 by Tushar Ribeiro MD) S/P coronary artery stent placement S/P spinal fusion Family History Other Family history non-contributory Social History Smoking Status: Never smoker Tobacco Type: Smokeless Tobacco (Dip or Chew) Second Hand Exposure: No; Hx Alcohol Use: Yes Alcohol type: beer Hx Substance Use: No Preferred Language: Mongolian Communication Ability: Effective Marketing Compliance Manager Required: No Beliefs That Will Affect Care: None Current Living Situation: Spouse current occupation: Retired Feels Safe at Home: Yes Assistive Devices: None Physical Exam Physical Exam: Gen.: No acute distress. Alert and oriented. HEENT: Anicteric sclera. Neck: No JVD. No bruits. Normal carotid upstrokes bilaterally. Cardiac: PMI was nonpalpable. No ventricular heave. Regular rate and rhythm. Normal S1-S2. No murmurs, rubs, or gallops. Pulmonary: Clear to auscultation bilaterally without wheezes, rales, or rhonchi. Abdomen: Soft, nontender, nondistended, with normoactive bowel sounds. No bruits noted. Extremities: 2+ radial pulses bilaterally. 2+ posterior tibialis pulses bilaterally. No edema or cyanosis. Psychiatric: Affect appears appropriate. Results & Data ([facility]) Vital Signs (Past 12 Hours) Vital Signs Temp Pulse Pulse Resp BP Pulse Ox 08/03/21 14:53 74 08/03/21 11:21 36.7 C 70 18 128/68 96 08/03/21 10:17 67 08/03/21 08:00 37 C 64 18 150/76 H 95 08/03/21 04:00 36.6 C 72 18 136/72 97 Laboratory Results Laboratory Results - last 24 hr 08/02/21 08/02/21 08/02/21 20:02 20:02 20:02 WBC 8.64 RBC 4.81 Hgb 13.6 L Hct 40.5 L MCV 84.2 MCH 28.3 MCHC 33.6 RDW Std Deviation 46.0 RDW Coeff of Shine 14.9 H Plt Count 193 MPV 8.5 Immature Gran % (Auto) 0.3 Neut % (Auto) 75.6 Lymph % (Auto) 13.5 [place] % (Auto) 8.6 Eos % (Auto) 1.2 Baso % (Auto) 0.8 Neut # (Auto) 6.53 H Lymph # (Auto) 1.17 L [place] # (Auto) 0.74 H Eos # (Auto) 0.10 Baso # (Auto) 0.07 Immature Gran # (Auto) 0.03 H PT 10.0 INR 1.0 APTT 23.1 PTT Ratio 0.9 Sodium 139 Potassium 3.9 Chloride 108 H Carbon Dioxide 27 Anion Gap 4.0 BUN 22 H Creatinine 1.20 Est Cr Clr Drug Dosing 57.5 Est GFR ( Amer) 68.6 Est GFR (Non-Af Amer) 59.2 BUN/Creatinine Ratio 18.1 Glucose 87 Calcium 8.7 Magnesium Total Bilirubin 0.7 AST 30 ALT 35 Alkaline Phosphatase 79 Troponin I < 0.015 Total Protein 7.6 Albumin 3.7 Globulin 3.9 Albumin/Globulin Ratio 0.9 Lipase 150 COVID-19 Eval Order SARS-CoV-2 (PCR) 08/02/21 08/02/21 08/03/21 21:35 21:35 07:55 WBC 6.43 RBC 4.86 Hgb 14.1 Hct 41.6 L MCV 85.6 MCH 29.0 MCHC 33.9 RDW Std Deviation 47.8 H RDW Coeff of Shine 15.2 H Plt Count 198 MPV 8.6 Immature Gran % (Auto) 0.3 Neut % (Auto) 76.3 Lymph % (Auto) 12.1 [place] % (Auto) 9.6 Eos % (Auto) 1.1 Baso % (Auto) 0.6 Neut # (Auto) 4.90 Lymph # (Auto) 0.78 L [place] # (Auto) 0.62 H Eos # (Auto) 0.07 Baso # (Auto) 0.04 Immature Gran # (Auto) 0.02 PT INR APTT PTT Ratio Sodium Potassium Chloride Carbon Dioxide Anion Gap BUN Creatinine Est Cr Clr Drug Dosing Est GFR ( Amer) Est GFR (Non-Af Amer) BUN/Creatinine Ratio Glucose Calcium Magnesium Total Bilirubin AST ALT Alkaline Phosphatase Troponin I Total Protein Albumin Globulin Albumin/Globulin Ratio Lipase COVID-19 Eval Order Covid19 at [facility] SARS-CoV-2 (PCR) NEGATIVE 08/03/21 08/03/21 07:55 08:51 WBC RBC Hgb Hct MCV MCH MCHC RDW Std Deviation RDW Coeff of Shine Plt Count MPV Immature Gran % (Auto) Neut % (Auto) Lymph % (Auto) [place] % (Auto) Eos % (Auto) Baso % (Auto) Neut # (Auto) Lymph # (Auto) [place] # (Auto) Eos # (Auto) Baso # (Auto) Immature Gran # (Auto) PT INR APTT PTT Ratio Sodium 141 Potassium 3.9 Chloride 111 H Carbon Dioxide 26 Anion Gap 4.0 BUN 17 Creatinine 1.19 Est Cr Clr Drug Dosing 67.0 Est GFR ( Amer) 69.3 Est GFR (Non-Af Amer) 59.8 BUN/Creatinine Ratio 14.0 Glucose 110 H Calcium 9.0 Magnesium 2.3 Total Bilirubin AST ALT Alkaline Phosphatase Troponin I < 0.015 < 0.015 Total Protein Albumin Globulin Albumin/Globulin Ratio Lipase COVID-19 Eval Order SARS-CoV-2 (PCR) Diagnostic Findings Echo 08/03/2021: Normal LV size, wall motion, systolic function. EF 55-60%. Moderate LVH. Normal RVSP. No significant valvular abnormalities. Compared to 01/22/2019 echo, RV no longer appears dilated and inferior wall motion abnormality has resolved. Telemetry personally reviewed: Sinus rhythm. No arrhythmia. ECG 08/03/2021 at 6:17 a.m.: Sinus rhythm 63 beats per minute. Normal ECG. ECG 08/02/2021: Sinus rhythm 80 beats per minute. Normal ECG. Chest x-ray 08/02/2021: Minimal atelectasis left base. Cardiac catheterization 01/21/2019: LM -large caliber vessel, luminal irregularities LAD -moderate caliber, 20% ostial, mildly calcified 20-30% proximal at takeoff of bifurcating first diagonal, diffuse 60% mid segment disease, diffuse distal disease, small caliber vessel as wraps around the apex with up to 70% stenosis. 60% proximal stenosis and an inferior branch of bifurcating first diagonal Circumflex -moderate caliber vessel, 30% proximal disease, distal luminal irregularities into left PLB. 40% ostial, 70% mid disease in small-moderate caliber OM 2, RCA -dominant, 80-90% proximal, acute 100% mid segment occlusion, diffuse mid to distal calcified 50-60% disease after flow reestablished, mild diffuse disease in right PDA, PLB's Successful PCI of RCA occlusion and diffuse disease with 3 overlapping drug- eluting stents (3.0 x 12, 3.0 x 38, 3.0 x 34 Suraj; postdilated with 3.5 NC) Medications Administered Current Inpatient Medications Acetaminophen (Acetaminophen 325 Mg Tab) 650 mg PO Q4H PRN PRN Reason: Pain or Fever Stop: 09/02/21 00:02 Aspirin ([facility] 81 Mg [facility]) [facility] [place]: 09/02/21 08:59 Last Admin: 08/03/21 07:52 Dose: 81 mg Documented by: Atorvastatin Calcium (Atorvastatin 40 Mg Tab) [facility] [place]: 09/02/21 08:59 Last Admin: 08/03/21 07:53 Dose: 80 mg Documented by: Clopidogrel Bisulfate (Clopidogrel Bisulfate 75 Mg Tab) 75 mg PO QAM [facility] Stop: 09/02/21 08:59 Last Admin: 08/03/21 07:53 Dose: 75 mg Documented by: Isosorbide Mononitrate (Isosorbide [place] Extended Rel 30 Mg Tabcr) 30 mg PO DAILY [facility] Stop: 09/02/21 08:59 Last Admin: 08/03/21 07:53 Dose: 30 mg Documented by: Nitroglycerin (Nitroglycerin Sl 0.4 Mg/Tab Tab) 0.4 mg SL UD PRN PRN Reason: Chest Pain Stop: 09/02/21 00:02 Ondansetron HCl (Ondansetron Inj 2 Mg/Ml 2 Ml Vial) 4 mg IV Q6H PRN PRN Reason: Nausea Stop: 09/02/21 00:02 Pantoprazole Sodium (Pantoprazole 40 Mg Tab) 40 mg PO QAM [facility]; Protocol Stop: 09/02/21 08:59 Last Admin: 08/03/21 07:53 Dose: 40 mg Documented by: Polyethylene Glycol (Polyethylene (Miralax) 17 Gm Pack) 17 gm PO DAILY PRN PRN Reason: Constipation Stop: 09/02/21 00:02 Tamsulosin HCl (Tamsulosin Hcl 0.4 Mg Cap) 0.8 mg PO DAILY [facility] Stop: 09/02/21 08:59 Last Admin: 08/03/21 07:53 Dose: 0.8 mg Documented by: PG Care Time/CCT Total # of Minutes Spent Total Time Spent with Patient: Total time spent is greater than 50% in coordination of care (as documented) at patient's floor/unit and/or counseling patient: Coding Level of Care Code 22971 Office/Outpt Visit, Est Diagnoses Precordial chest pain R07.2 SOB (shortness of breath) R06.02 Coronary artery disease I25.10 Hypertension I10 Hyperlipidemia E78.5 S/P coronary artery stent placement Z95.5
--- NOTE | 2021-08-03 15:51 | Hospitalist Progress Note ---
Date of Service August 03, 2021 Assessment & Plan (1) Precordial chest pain: (2) CAD (coronary atherosclerotic disease): Plan: This is a 76-year-old male w/ hx of CAD who presents with chest pain. 1. Chest pain: Rule out acute coronary syndrome. History of coronary artery disease, status post 3 overlapping stents in RCA in 2019. Exercise SPECT suggestive of small area of apical ischemia correlating to known small, apical LAD disease. Medical therapy was recommended as it was felt lesion was too small to intervene upon. [place] [facility] [place]. Reid) Initial workup is negative. Troponin x3 negative Echo obtained -normal LV size and systolic function. EF 55 to 60%. No regional wall motion abnormalities. Moderate concentric LVH. Normal RV size and systolic function. No significant valvular abnormalities. Normal estimated right ventricular systolic pressure, estimated normal right atrial pressure. Compared to prior study on January 2019, inferior wall motion abnormality has improved. RV no longer appears dilated. Cardiology consulted for further recommendation. Discussed possibility of stress echo, however patient declined, and would prefer to follow-up as outpatient. He has cardiology appointment scheduled for August 30. Discussed with cardiology, and patient will be discharged today and will follow up with his outpatient providers. 2. History of coronary artery disease: As above. Continue his aspirin, Plavix, statin, and Imdur. 3. History of hypertension: Continue Imdur. 4. Chronic kidney disease stage III: Currently with a creatinine 1.2. Will follow the labs. 5. Gastroesophageal reflux disease: Continue Protonix. 6. Benign prostatic hypertrophy: Continue Flomax. 7. Hyperlipidemia: Continue statin. DVT prophylaxis: SCDs DISPOSITION: DC home and follow up with family doctor and sports bookmaker. Admission and Anticipated Discharge Date Admission Date: August 02, 2021 Subjective Patient seen in follow-up of chest pain, history of CAD status post 3 overlapping stents in RCA in 2019 Currently walking in his room, in no acute distress Reports that he has no chest pain shortness of breath dizziness or lightheadedness He does report having chest pressure, mostly at left lower chest without any radiation to his jaw or arm, this happened on several occasions yesterday and since then has resolved Discussed in detail with the patient his results and possibility of stress test, patient is eager to go home and follow-up with his sports bookmaker on August 30. Reports that he cannot do exercise stress test and is not interested at this time in dobutamine stress test. Reports that he feels quite well and wants to follow-up with his healthcare providers as outpatient. Review of Systems Review of Systems: All systems reviewed & are unremarkable except as noted in Subjective Physical Exam Physical Exam: GENERAL: The patient is of moderate build, not in acute distress. HEENT: NC/AT, EOMI, Pupils equal, round and reactive to light. NECK: No JVD, no neck masses. CARDIOVASCULAR: S1 and S2 heard. Regular rate and rhythm. No murmur, no gallop. RESPIRATORY: Normal AP diameter. No accessory muscle use. No wheezing, no crackles. ABDOMEN: Soft, bowel sounds present, nontender, no distention. NEURO: alert and oriented x3, no facial asymmetry, speech fluent, moves extremities EXTREMITIES: No edema, no erythema. Results & Data Results & Data ([facility]) Vital Signs (Past 12 Hours) Vital Signs Temp Pulse Pulse Resp BP Pulse Ox 08/03/21 14:53 74 08/03/21 11:21 36.7 C 70 18 128/68 96 08/03/21 10:17 67 08/03/21 08:00 37 C 64 18 150/76 H 95 08/03/21 04:00 36.6 C 72 18 136/72 97 Laboratory Results 08/03/21 08/03/21 08/03/21 Range/Units 08:51 07:55 07:55 WBC 6.43 (4.8-10.8) K/uL RBC 4.86 (4.7-6.1) M/uL Hgb 14.1 (14.0-18.0) g/dL Hct 41.6 L (42-52) % MCV 85.6 (80-100) fL MCH 29.0 (25-34) pg MCHC 33.9 (32-36) g/dL RDW Std Deviation 47.8 H (36.4-46.3) fL RDW Coeff of Shine 15.2 H (11.5-14.5) % Plt Count 198 (130-400) K/uL MPV 8.6 (7.4-10.4) fL Immature Gran % (Auto) 0.3 % Neut % (Auto) 76.3 % Lymph % (Auto) 12.1 % [place] % (Auto) 9.6 % Eos % (Auto) 1.1 % Baso % (Auto) 0.6 % Neut # (Auto) 4.90 (1.4-6.5) K/uL Lymph # (Auto) 0.78 L (1.2-3.4) K/uL [place] # (Auto) 0.62 H (0.11-0.59) K/uL Eos # (Auto) 0.07 (0-0.5) K/uL Baso # (Auto) 0.04 (0-0.2) K/uL Immature Gran # (Auto) 0.02 (0.00-0.02) K/uL PT (9.0-12.0) Seconds INR (0.9-1.1) APTT (21.0-31.0) Seconds PTT Ratio Sodium 141 (136-145) mmol/L Potassium 3.9 (3.5-5.1) mmol/L Chloride 111 H (98-107) mmol/L Carbon Dioxide 26 (21-32) mmol/L Anion Gap 4.0 (3-11) BUN 17 (7-18) mg/dl Creatinine 1.19 (0.6-1.4) mg/dl Est Cr Clr Drug Dosing 67.0 ml/min Est GFR ( Amer) 69.3 ml/min Est GFR (Non-Af Amer) 59.8 ml/min BUN/Creatinine Ratio 14.0 (10-20) Glucose 110 H (70-99) mg/dl Calcium 9.0 (8.5-10.1) mg/dl Magnesium 2.3 (1.8-2.4) mg/dl Total Bilirubin (0.2-1) mg/dl AST (15-37) U/L ALT (12-78) U/L Alkaline Phosphatase (45-117) U/L Troponin I < 0.015 < 0.015 (0-0.045) ng/ml Total Protein (6.4-8.2) gm/dl Albumin (3.4-5.0) gm/dl Globulin (2.5-4.0) gm/dl Albumin/Globulin Ratio (0.9-2) Lipase (73-393) U/L COVID-19 Eval Order SARS-CoV-2 (PCR) (Negative) 08/02/21 08/02/21 08/02/21 Range/Units 21:35 21:35 20:02 WBC (4.8-10.8) K/uL RBC (4.7-6.1) M/uL Hgb (14.0-18.0) g/dL Hct (42-52) % MCV (80-100) fL MCH (25-34) pg MCHC (32-36) g/dL RDW Std Deviation (36.4-46.3) fL RDW Coeff of Shine (11.5-14.5) % Plt Count (130-400) K/uL MPV (7.4-10.4) fL Immature Gran % (Auto) % Neut % (Auto) % Lymph % (Auto) % [place] % (Auto) % Eos % (Auto) % Baso % (Auto) % Neut # (Auto) (1.4-6.5) K/uL Lymph # (Auto) (1.2-3.4) K/uL [place] # (Auto) (0.11-0.59) K/uL Eos # (Auto) (0-0.5) K/uL Baso # (Auto) (0-0.2) K/uL Immature Gran # (Auto) (0.00-0.02) K/uL PT (9.0-12.0) Seconds INR (0.9-1.1) APTT (21.0-31.0) Seconds PTT Ratio Sodium 139 (136-145) mmol/L Potassium 3.9 (3.5-5.1) mmol/L Chloride 108 H (98-107) mmol/L Carbon Dioxide 27 (21-32) mmol/L Anion Gap 4.0 (3-11) BUN 22 H (7-18) mg/dl Creatinine 1.20 (0.6-1.4) mg/dl Est Cr Clr Drug Dosing 57.5 ml/min Est GFR ( Amer) 68.6 ml/min Est GFR (Non-Af Amer) 59.2 ml/min BUN/Creatinine Ratio 18.1 (10-20) Glucose 87 (70-99) mg/dl Calcium 8.7 (8.5-10.1) mg/dl Magnesium (1.8-2.4) mg/dl Total Bilirubin 0.7 (0.2-1) mg/dl AST 30 (15-37) U/L ALT 35 (12-78) U/L Alkaline Phosphatase 79 (45-117) U/L Troponin I < 0.015 (0-0.045) ng/ml Total Protein 7.6 (6.4-8.2) gm/dl Albumin 3.7 (3.4-5.0) gm/dl Globulin 3.9 (2.5-4.0) gm/dl Albumin/Globulin Ratio 0.9 (0.9-2) Lipase 150 (73-393) U/L COVID-19 Eval Order Covid19 at [facility] SARS-CoV-2 (PCR) NEGATIVE (Negative) 08/02/21 08/02/21 Range/Units 20:02 20:02 WBC 8.64 (4.8-10.8) K/uL RBC 4.81 (4.7-6.1) M/uL Hgb 13.6 L (14.0-18.0) g/dL Hct 40.5 L (42-52) % MCV 84.2 (80-100) fL MCH 28.3 (25-34) pg MCHC 33.6 (32-36) g/dL RDW Std Deviation 46.0 (36.4-46.3) fL RDW Coeff of Shine 14.9 H (11.5-14.5) % Plt Count 193 (130-400) K/uL MPV 8.5 (7.4-10.4) fL Immature Gran % (Auto) 0.3 % Neut % (Auto) 75.6 % Lymph % (Auto) 13.5 % [place] % (Auto) 8.6 % Eos % (Auto) 1.2 % Baso % (Auto) 0.8 % Neut # (Auto) 6.53 H (1.4-6.5) K/uL Lymph # (Auto) 1.17 L (1.2-3.4) K/uL [place] # (Auto) 0.74 H (0.11-0.59) K/uL Eos # (Auto) 0.10 (0-0.5) K/uL Baso # (Auto) 0.07 (0-0.2) K/uL Immature Gran # (Auto) 0.03 H (0.00-0.02) K/uL PT 10.0 (9.0-12.0) Seconds INR 1.0 (0.9-1.1) APTT 23.1 (21.0-31.0) Seconds PTT Ratio 0.9 Sodium (136-145) mmol/L Potassium (3.5-5.1) mmol/L Chloride (98-107) mmol/L Carbon Dioxide (21-32) mmol/L Anion Gap (3-11) BUN (7-18) mg/dl Creatinine (0.6-1.4) mg/dl Est Cr Clr Drug Dosing ml/min Est GFR ( Amer) ml/min Est GFR (Non-Af Amer) ml/min BUN/Creatinine Ratio (10-20) Glucose (70-99) mg/dl Calcium (8.5-10.1) mg/dl Magnesium (1.8-2.4) mg/dl Total Bilirubin (0.2-1) mg/dl AST (15-37) U/L ALT (12-78) U/L Alkaline Phosphatase (45-117) U/L Troponin I (0-0.045) ng/ml Total Protein (6.4-8.2) gm/dl Albumin (3.4-5.0) gm/dl Globulin (2.5-4.0) gm/dl Albumin/Globulin Ratio (0.9-2) Lipase (73-393) U/L COVID-19 Eval Order SARS-CoV-2 (PCR) (Negative) Medications Administered Current Inpatient Medications Acetaminophen (Acetaminophen 325 Mg Tab) 650 mg PO Q4H PRN PRN Reason: Pain or Fever Stop: 09/02/21 00:02 Aspirin (Aspirin 81 Mg Ectab) 81 mg PO [facility] Stop: 09/02/21 08:59 Last Admin: 08/03/21 07:52 Dose: 81 mg Documented by: Atorvastatin Calcium (Atorvastatin 40 Mg Tab) 80 mg PO [facility] Stop: 09/02/21 08:59 Last Admin: 08/03/21 07:53 Dose: 80 mg Documented by: Clopidogrel Bisulfate (Clopidogrel Bisulfate 75 Mg Tab) 75 mg PO [facility] Stop: 09/02/21 08:59 Last Admin: 08/03/21 07:53 Dose: 75 mg Documented by: Isosorbide Mononitrate (Isosorbide [place] Extended Rel 30 Mg Tabcr) 30 mg PO DAILY [facility] Stop: 09/02/21 08:59 Last Admin: 08/03/21 07:53 Dose: 30 mg Documented by: Nitroglycerin (Nitroglycerin Sl 0.4 Mg/Tab Tab) 0.4 mg SL UD PRN PRN Reason: Chest Pain Stop: 09/02/21 00:02 Ondansetron HCl (Ondansetron Inj 2 Mg/Ml 2 Ml Vial) 4 mg IV Q6H PRN PRN Reason: Nausea Stop: 09/02/21 00:02 Pantoprazole Sodium (Pantoprazole 40 Mg Tab) 40 mg PO QAM [facility]; Protocol Stop: 09/02/21 08:59 Last Admin: 08/03/21 07:53 Dose: 40 mg Documented by: Polyethylene Glycol (Polyethylene (Miralax) 17 Gm Pack) 17 gm PO DAILY PRN PRN Reason: Constipation Stop: 09/02/21 00:02 Tamsulosin HCl (Tamsulosin Hcl 0.4 Mg Cap) 0.8 mg PO DAILY [facility] Stop: 09/02/21 08:59 Last Admin: 08/03/21 07:53 Dose: 0.8 mg Documented by: (1) CAD (coronary atherosclerotic disease) Associated angina: unspecified whether angina present Coronary Disease- Associated Artery/Lesion type: unspecified vessel or lesion type [place] vs. transplanted heart: [place] heart Qualified Code(s): I25.10 - Atherosclerotic heart disease of [place] coronary artery without angina pectoris
--- NOTE | 2021-08-03 16:41 | Discharge Summary ---
Date of Service August 03, 2021 Admission HPI Per Admitting Provider A 76-year-old male with past medical history significant for hyperlipidemia, prediabetes, CAD status post stents, hypertension, GERD, BPH, chronic kidney disease stage III, history of tobacco abuse, history of pituitary macroadenoma, comes because of chest pain. The patient around 3:00 in afternoon, he was driving the car when he noticed chest discomfort which lasted for about 15 minutes. At home again it came and resolved and then he went for mowing his grass. After mowing the grass, he felt short of breath, weak, tired, fatigued, so that is the reason he says his daughter wanted him to come and get checked. Currently, resting comfortably and hemodynamically stable. Denies any headache. No blurred visions, no earache, no runny nose, no sore throat, no cough, no fevers. Appetite is good. No dysphagia, no shortness of breath, no sweating. Currently, no nausea, no abdominal pain. Normal bowel and bladder movements. Otherwise ambulates okay. Admission Exam Per Admitting Provider GENERAL: The patient is of moderate build, not in acute distress. VITAL SIGNS: Temperature 36.6, pulse 74, respiratory rate 20, blood pressure 148/68, oxygen 97% on room air. HEENT: Pupils equal, round and reactive to light. Oral mucosa moist. NECK: No JVD, no neck masses. CARDIOVASCULAR: S1 and S2 heard. Regular rate and rhythm. No murmur, no gallop. RESPIRATORY SYSTEM: Normal AP diameter. No accessory muscle use. No wheezing, no crackles. ABDOMEN: Soft, bowel sounds present, nontender, no distention. CENTRAL NERVOUS SYSTEM: Cranial nerves II-XII grossly intact, nonfocal. EXTREMITIES: No edema, no erythema. Principal Diagnosis Chest pain Discharge Exam GENERAL: The patient is of moderate build, not in acute distress. HEENT: NC/AT, EOMI, Pupils equal, round and reactive to light. NECK: No JVD, no neck masses. CARDIOVASCULAR: S1 and S2 heard. Regular rate and rhythm. No murmur, no gallop. RESPIRATORY: Normal AP diameter. No accessory muscle use. No wheezing, no crackles. ABDOMEN: Soft, bowel sounds present, nontender, no distention. NEURO: alert and oriented x3, no facial asymmetry, speech fluent, moves extremities EXTREMITIES: No edema, no erythema. Discharge Data Allergies Allergy/AdvReac Type Severity Reaction Status Date / Time No Known Drug Allergies Allergy Unknown Verified 08/02/21 21:12 Consultations 08/02/21 20:47 ED Decision to Admit Stat 08/03/21 08:00 Consult Cardiology Routine Hospital Course (1) Precordial chest pain: (2) CAD (coronary atherosclerotic disease): This is a 76-year-old male w/ hx of CAD who presents with chest pain. 1. Chest pain: Rule out acute coronary syndrome. History of coronary artery disease, status post 3 overlapping stents in RCA in 2019. Exercise SPECT suggestive of small area of apical ischemia correlating to known small, apical LAD disease. Medical therapy was recommended as it was felt lesion was too small to intervene upon. Pt follows with [facility] (Dr. Reid) Initial workup is negative. Troponin x3 negative Echo obtained -normal LV size and systolic function. EF 55 to 60%. No regional wall motion abnormalities. Moderate concentric LVH. Normal RV size and systolic function. No significant valvular abnormalities. Normal estimated right ventricular systolic pressure, estimated normal right atrial pressure. Compared to prior study on January 2019, inferior wall motion abnormality has improved. RV no longer appears dilated. Cardiology consulted for further recommendation. Discussed possibility of stress echo, however patient declined, and would prefer to follow-up as outpatient. He has cardiology appointment scheduled for August 30. Discussed with cardiology, and patient will be discharged today and will follow up with his outpatient providers. 2. History of coronary artery disease: As above. Continue his aspirin, Plavix, statin, and Imdur. 3. History of hypertension: Continue Imdur. 4. Chronic kidney disease stage III: Currently with a creatinine 1.2. Will follow the labs. 5. Gastroesophageal reflux disease: Continue Protonix. 6. Benign prostatic hypertrophy: Continue Flomax. 7. Hyperlipidemia: Continue statin. DVT prophylaxis: SCDs DISPOSITION: DC home and follow up with family doctor and front facer. Total Time Total Time Spent Total Time Spent (In Minutes): 35 Discharge Plan Discharge Items Patient Disposition: Home - Self-Care Reason For Visit: CHEST PAIN Discharge Diagnosis: Chest pain Condition on Discharge: Fair Activity: Per Instructions section Non-emergency contact: Primary Care Provider and Residential Designer Call non-emergency contact if: you have any medication questions and your symptoms worsen Follow-up/Referrals: Alonzo Mcginnis MD [Primary Care Provider] - (Date & Time 08/09/2021 11:00 AM Provider Julia Rodriguez MD Department [facility] ) Diet: Heart Healthy Addtl Attending Provider Instructions: Follow-up with your primary care doctor and your front facer. The appointment with your family doctor was scheduled for August 09. If you develop any discomfort/ chest pain, call your front facer or present back to emergency room for further evaluation. Otherwise follow-up with your front facer as already scheduled. Pending Studies at Discharge: No Stand-Alone Forms: My [facility] [employer], Smoking Cessation Medications and DC Order Prescriptions: Continued clopidogrel 75 mg tablet 75 mg PO QAM Qty: 90 RF: 3 isosorbide mononitrate 30 mg tablet extended release 24 hr 30 mg PO DAILY Qty: 90 RF: 3 atorvastatin 80 mg tablet 80 mg PO QAM Qty: 30 RF: 0 aspirin 81 mg tablet,delayed release (DR/EC) 81 mg PO QAM RF: 0 pantoprazole 20 mg tablet,delayed release (DR/EC) 20 mg PO QAM RF: 0 tamsulosin 0.4 mg capsule 0.8 mg PO DAILY RF: 0 diclofenac sodium 75 mg tablet,delayed release (DR/EC) 75 mg PO BID PRN (Reason: Pain) RF: 0 Discharge Orders: Discharge Order (Routine); Ordered 08/03/21 Ordered By: Bao Yanez Admission Data Admit Date/Time: 08/02/21 21:57 Attending Provider: Bao Yanez Admit Provider: Rico Forbes Primary Care Provider: Alonzo Mcginnis Other Providers: Darrell Reid ; Rico Forbes Other Interventions: Discharge Summary Assessment (RN) Last Done: 08/03/21 15:44
--- NOTE | 2021-08-04 06:27 | Electrocardiogram Report ---
Test Reason : Blood Pressure : / mmHG Vent. Rate : 080 BPM Atrial Rate : 080 BPM P-R Int : 188 ms QRS Dur : 094 ms QT Int : 360 ms P-R-T Axes : 062 004 023 degrees QTc Int : 415 ms Normal sinus rhythm Normal ECG When compared with ECG of 28-SEP-2019 16:44, No significant change was found Confirmed by Tushar Ribeiro ([id number]) on 08/04/2021 6:27:10 AM Referred By: REFERRED SELF Confirmed By:Tushar Ribeiro
--- NOTE | 2021-08-04 06:40 | Electrocardiogram Report ---
Test Reason : Blood Pressure : / mmHG Vent. Rate : 063 BPM Atrial Rate : 063 BPM P-R Int : 192 ms QRS Dur : 094 ms QT Int : 410 ms P-R-T Axes : 059 014 019 degrees QTc Int : 419 ms Normal sinus rhythm Normal ECG When compared with ECG of 02-AUG-2021 19:53, No significant change was found Confirmed by Tushar Ribeiro ([id number]) on 08/04/2021 6:39:32 AM Referred By: REFERRED SELF Confirmed By:Tushar Ribeiro
== END 2021-08-03 16:09 | disposition home or self-care (01) ==
LOC: 2W 19:42 → ED 19:42 → 2W 23:36